=== PATIENT | female | born 1965 | race Caucasian/White ===

== ENCOUNTER 2021-01-10 14:25 | Outpatient (REF) | payer MEDICAID, SELFPAY ==
--- NOTE | ~2021-01-10 | MM_ITS ---
EXAMINATION: MM SCREENING DIGITAL BREAST TOMOSYNTHESIS, BILATERAL CLINICAL INFORMATION: Screening. Asymptomatic. The lifetime risk of breast cancer based on the Tyrer-Cuzick Model is 7%. COMPARISON: Mammography: 01/12/2019, 12/29/2017, 06/06/2016 TECHNIQUE: Digital breast tomosynthesis is performed in both the craniocaudal and mediolateral oblique views along with computer-aided detection (CAD). Synthesized 2D images are generated from the tomosynthesis. Additional bilateral CC and bilateral MLO views are provided. FINDINGS: The breasts are almost entirely fatty (ACR BI-RADS breast composition Category a). Background stromal markings are stable. There are no significant masses, abnormal calcifications, or other abnormalities. No developing density. Skin contours are smooth. No significant changes. MM/MM tomosynthesis screening BI IMPRESSION: No mammographic evidence of malignancy. ASSESSMENT: BI-RADS 1: Negative RECOMMENDATION: Routine annual mammography screening. This patient's information was entered into a reminder system with a target due date for their next mammogram.
== END 2021-01-10 14:26 | disposition home or self-care (01) ==
LOC: HO.MAMMO 14:25
PROVIDERS: PCP Family Medicine; Visit Provider Family Medicine
DX: Z12.31 Encounter for screening mammogram for malignant neoplasm of breast (principal)
CPT/HCPCS: 77063; 77067

== ENCOUNTER 2021-02-16 16:54 | Emergency (ER) | payer MEDICAID, SELFPAY ==
--- NOTE | ~2021-02-16 | XR_ITS ---
EXAMINATION: XR FOOT, RIGHT CLINICAL INFORMATION: Right foot injury. COMPARISON: None TECHNIQUE: AP, lateral, and oblique views of the right foot. FINDINGS: There is a healed fracture of the fifth metatarsal shaft. Bones are osteopenic. No acute fracture or malalignment. Mild/moderate multifocal osteoarthritis is present within the interphalangeal joints and first MTP joint. More mild multifocal osteoarthritis in the midfoot and talocrural joint. Chronic ossific fragments around the talocrural joint correspond to old avulsion injuries. No acute fractures are identified. Moderate sized enthesopathic spur is present at the plantar fascial origin on the calcaneus. XR/XR foot RT min 3V IMPRESSION: No acute fracture or malalignment at the right foot. Mild to moderate multifocal osteoarthritis.
[2021-02-16 16:57] VITALS: BP 157/75; PULSE 84; RESP 18; TEMP 36.9; O2SAT 95; BMI 44.9
--- NOTE | 2021-02-16 18:35 | ED.WOUNDLAC ---
HPI - Wound/Laceration General Chief Complaint: Wound/Laceration Stated Complaint: foot lac Time Seen by Provider: 02/16/21 18:28 History of Present Illness HPI narrative: Patient complains of cut to the right 4th toe when she tripped on a piece of metal on the floor, no numbness no weakness no tingling, no other injury, no difficulty walking Related Data Allergies Allergy/AdvReac Type Severity Reaction Status Date / Time morphine AdvReac Intermediate vomiting Verified 02/16/21 16:56 Review of Systems Review of Systems: Positive for right 4th toe laceration Negatives are no dizziness no weakness no fainting no headache no head injury no neck pain no back pain no numbness weakness or tingling Yes all other systems are reviewed and are negative PMFSH Past Medical History Source: nursing notes reviewed Medical History (Updated 02/17/21 @ 00:01 by Gabino Rodriguez) Diabetes Obesity Social History Social History Advance Directives: No Advance Directives Information Provided: Yes Patient : No Physical Exam Vital Signs: Vital Signs: Last Vital Signs Temp 98.5 F 02/16/21 16:57 Pulse 84 02/16/21 16:57 Resp 18 02/16/21 16:57 BP 157/75 H 02/16/21 16:57 Pulse Ox 95 02/16/21 16:57 Body Mass Index 44.9 General appearance is no acute distress Head is normocephalic atraumatic Neck supple nontender Respiratory no distress Extremities full range of motion x4 Right 4th toe exam there is a superficial flap laceration 1 cm which is not bleeding, there is full range of motion in the toe there is no tenderness noted Course Course Course Narrative: 1.5 cm flap laceration to the right 4th toe is cleansed and irrigated with normal saline and closed with Steri-Strips X-ray was negative Patient ambulates easily, was given a tetanus shot and was discharged Discharge Plan Discharge Clinical Impression: Laceration Patient Disposition: Home, Self-Care Additional Instructions: Superficial cut was closed with tape You got a tetanus shot Removed tape in for 5 days Return any time for redness swelling any sign of infection Interventions: ED Discharge Assessment Last Done: 02/16/21 18:54 Discharge Date/Time: 02/16/21 18:57
[2021-02-16] MEDS: Diphth,Pertus(ACell),Tet Adult 0.5 ML SYRINGE IM (18:46)
--- NOTE | 2021-02-16 18:51 | PC.NURSE ---
PT LAC TO RIGHT FOOT 2ND TOE CLEANED AND IRRIGATED STERIES APPLIED. NOTED THAT PT HAS MULTIPLE SCABBES AND BUISES TO BILATERAL ARM AND LEG PT STATES THAT NORMAL FOR HER.
== END 2021-02-16 18:57 | disposition home or self-care (01) ==
PROVIDERS: Emergency Provider Emergency Medicine Emergency Medical Services; PCP Family Medicine
DX: S91.114A Laceration without foreign body of right lesser toe(s) without damage to nail, initial encounter (principal); W26.8XXA Contact with other sharp object(s), not elsewhere classified, initial encounter; Y93.9 Activity, unspecified; Y92.9 Unspecified place or not applicable; Y99.9 Unspecified external cause status
CPT/HCPCS: 73630; 90471; 90715; 99283; 99284

== ENCOUNTER 2021-08-22 17:07 | Emergency (ER) | payer MEDICAID, SELFPAY ==
--- NOTE | ~2021-08-22 | CT_ITS ---
EXAMINATION: CT HEAD WITHOUT CONTRAST CLINICAL INFORMATION: Worse headache of life. COMPARISON: Head CT dated 03/18/2019. TECHNIQUE: Contiguous axial imaging was performed from the skull base to vertex without intravenous administration of contrast. This CT examination was performed using dose optimization techniques as appropriate, variously including the following: *Automated exposure control *Adjustment of mA and/or kV according to patient size (this includes techniques or standardized protocols for targeted exams where dose is matched to indication/reason for exam; i.e. extremities or head) *Use of iterative reconstruction technique DLP: 680 mGy-cm FINDINGS: There is no evidence of acute intracranial hemorrhage or territorial infarction. No abnormal mass effect or midline shift is seen. Chapman to white matter differentiation is well preserved. No extra-axial fluid collections are identified. The ventricles are normal in size. There is no abnormal attenuation within the brain parenchyma. The osseous structures and soft tissues are normal. The mastoid air cells and visualized portions of the paranasal sinuses are well aerated. CT/CT head/brain wo con IMPRESSION: No acute intracranial pathology.
[2021-08-22 17:16] VITALS: BP 150/63; PULSE 73; RESP 22; TEMP 36.7; O2SAT 98; BMI 45.1
[2021-08-22 17:53] LABS: COVID-19 Test Negative (Negative); IDNOW Serial# 55D5AD1C
[2021-08-22 18:22] VITALS: BP 131/54; PULSE 74; RESP 18; TEMP 36.6; O2SAT 98
[2021-08-22] MEDS: Ketorolac Tromethamine 30 MG/ML VIAL 15 MG IM (18:25)
[2021-08-22] MEDS: Acetaminophen 325 MG TABLET 975 MG PO (18:25)
--- NOTE | 2021-08-22 18:40 | ED_ITS ---
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 Patient is correlating this headache with receiving the COVID-19 booster on Thursday. She states that the pain at the right hoahaoism and her year occurred simultaneously. Otherwise, she denies any other symptoms such as visual or speech changes and denies any unilateral numbness/tingling/weakness. She does report that the pain in her head is ?the worst in her life?. She states she was able to take [id number] Tylenol and ibuprofen with some reduction in the pain but then it simply recurs. Related Data Previous Rx's Medication Instructions Recorded amoxicillin 875 mg-potassium 1 tab PO Q12H 10 Days #20 tab 08/22/21 clavulanate 125 mg tablet (Augmentin) Allergies Allergy/AdvReac Type Severity Reaction Status Date / Time morphine AdvReac Intermediate vomiting Verified 02/16/21 16:56 Review of Systems Verdana 4l Review of Systems: Verdana 4d Pertinent positives and Verdana 4d negatives as stated in HPI 10 point review of systems is otherwise negative. Verdana 4d PMFSH Past Medical History Source: nursing notes reviewed Medical History Diabetes Obesity Social History Social History Alcohol intake: never Patient Tobacco Use Status: Never used Tobacco Use of substances other than those prescribed or required for medical reasons: No Advance Directives: No Advance Directives Information Provided: Yes Physical Exam Verdana 4l Vital Signs: Verdana 4d Verdana 4d Vital Signs: Verdana 4d Verdana 4Bd Last Vital Signs Verdana 4d Bulb Weeder New 4d Bulb Weeder New 4d Temp 98.2 F 08/22/21 19:05 Bulb Weeder New 4d Pulse 67 08/22/21 19:05 Bulb Weeder New 4d Resp 18 08/22/21 19:05 BP 122/44 L 08/22/21 19:05 Pulse Ox 97 08/22/21 19:05 BMI result Body Mass Index 45.1 VITAL SIGNS: Reviewed. GENERAL: Well developed, well nourished, in no acute distress. HEAD: Normocephalic/atraumatic, there is no pain when right mastoid is palpated/percussed EYES: PERRLA, EOMI EARS: Ext canals without abnormality, left TMs non-bulging and non-erythematous but right TM is opaque/and there is tragus pain NOSE: Nares patent bilateral OROPHARYNX: no oral lesions noted, posterior pharynx clear and non-erythematous without noted tonsillar enlargement/erythema/exudates, obvious poor dentition, no trismus NECK: Supple, no adenopathy LUNGS: Normal breath sounds. No adventitious sounds or accessory muscle use. SpO2<98> CARDIOVASCULAR: Regular rate and rhythm without noted murmurs, no JVD or lower extremity edema. ABDOMEN: Soft, non-tender, non-distended with bowel sounds. MUSCULOSKELETAL: No tenderness, deformities, or effusions noted on gross inspection. EXTREMITIES: No cyanosis, clubbing or edema. SKIN: Inspection of the skin reveals no rashes NEUROLOGIC: Alert and oriented x 4. Strength and sensation to light touch were grossly intact x 4, no facial asymmetry Course Course Course Narrative: 55-year-old female with history and clinical presentation suggestive of AOM but will rule out arteritis and low clinical suspicion for dental or pharyngeal abscess or mastoiditis. No evidence to suggest acute angle glaucoma. Patient provided with combination analgesics. On review of all investigations there are no acute mildly elevated ESR is likely due to recent COVID booster vaccination and/or ear infection as the level is inconsistent with arteritis. Patient to receive antibiotics here and then discharge on remaining course. MDM - Headache Lab Data Result diagrams: 08/22/21 18:42 08/22/21 18:42 Labs: Lab Results 08/22/21 08/22/21 08/22/21 Range/Units 17:25 18:42 18:42 WBC 6.9 (4.8-10.8) X10*3/uL RBC 4.94 (4.20-5.50) X10*6/uL Hgb 15.0 (12.0-16.0) g/dl Hct 45.7 (37.0-47.0) % MCV 92.5 (80.0-98.0) fL MCH 30.4 (27.0-33.0) pg MCHC 32.8 (31.0-35.0) g/dl RDW 11.9 (11.0-16.0) % Plt Count 283 (160-400) X10*3/uL MPV 9.8 (9.4-12.3) fL Immature Gran % (Auto) 0.3 (0.0-0.4) % Neut % (Auto) 44.9 L (45-73) % Lymph % (Auto) 39.6 (20-40) % [place] % (Auto) 10.2 (2-11) % Eos % (Auto) 4.1 H (0-4) % Baso % (Auto) 0.9 (0-2) % Lymph # (Auto) 2.7 (1.2-4.9) X10*3/uL [place] # (Auto) 0.7 (0.1-1.2) X10*3/uL Eos # (Auto) 0.3 (0.0-0.4) X10*3/uL Baso # (Auto) 0.1 (0.0-0.2) X10*3/uL Abs Immat Gran (auto) 0.02 (0.00-0.03) X10*3/uL Absolute Neuts (auto) 3.1 (2.0-8.3) x10*3/uL Absolute Nucleated RBC 0.000 (0.0-0.012) X10*3/uL Nucleated RBC % (auto) 0.0 (0.0-0.2) /100WBC ESR (0-20) MM/HR Sodium 143 (135-145) mmol/L Potassium 4.1 (3.3-5.1) mmol/L Chloride 108 (96-108) mmol/L Carbon Dioxide 26 (22-29) mmol/L Anion Gap 13 (12-20) BUN 9 (9-16) mg/dL Creatinine 0.87 (0.5-1.4) mg/dL Estim Creat Clear Calc 79.8 Estimated GFR > 60 POC Glucose (60-115) mg/dL Random Glucose 118 H (60-115) mg/dL Calcium 9.9 (8.4-10.2) mg/dL Total Bilirubin 0.3 (0.0-1.0) mg/dL AST 25 (5-31) U/L ALT 32 H (0-31) U/L Alkaline Phosphatase 76 (39-117) U/L Total Protein 7.5 (6.5-8.0) g/dL Albumin 3.9 (3.5-5.0) g/dL COVID-19 (BOB) Negative (Negative) COVID-19 Clin Com See Note 08/22/21 08/22/21 Range/Units 18:42 18:57 WBC (4.8-10.8) X10*3/uL RBC (4.20-5.50) X10*6/uL Hgb (12.0-16.0) g/dl Hct (37.0-47.0) % MCV (80.0-98.0) fL MCH (27.0-33.0) pg MCHC (31.0-35.0) g/dl RDW (11.0-16.0) % Plt Count (160-400) X10*3/uL MPV (9.4-12.3) fL Immature Gran % (Auto) (0.0-0.4) % Neut % (Auto) (45-73) % Lymph % (Auto) (20-40) % [place] % (Auto) (2-11) % Eos % (Auto) (0-4) % Baso % (Auto) (0-2) % Lymph # (Auto) (1.2-4.9) X10*3/uL [place] # (Auto) (0.1-1.2) X10*3/uL Eos # (Auto) (0.0-0.4) X10*3/uL Baso # (Auto) (0.0-0.2) X10*3/uL Abs Immat Gran (auto) (0.00-0.03) X10*3/uL Absolute Neuts (auto) (2.0-8.3) x10*3/uL Absolute Nucleated RBC (0.0-0.012) X10*3/uL Nucleated RBC % (auto) (0.0-0.2) /100WBC ESR 21 H (0-20) MM/HR Sodium (135-145) mmol/L Potassium (3.3-5.1) mmol/L Chloride (96-108) mmol/L Carbon Dioxide (22-29) mmol/L Anion Gap (12-20) BUN (9-16) mg/dL Creatinine (0.5-1.4) mg/dL Estim Creat Clear Calc Estimated GFR POC Glucose 101 (60-115) mg/dL Random Glucose (60-115) mg/dL Calcium (8.4-10.2) mg/dL Total Bilirubin (0.0-1.0) mg/dL AST (5-31) U/L ALT (0-31) U/L Alkaline Phosphatase (39-117) U/L Total Protein (6.5-8.0) g/dL Albumin (3.5-5.0) g/dL COVID-19 (BOB) (Negative) COVID-19 Clin Com Discharge Plan Discharge Clinical Impression: Acute otitis media Patient Disposition: Home, Self-Care Instructions: Ear Infection (ED) Additional Instructions: 1. Reanudar todos los medicamentos caseros seg?n lo prescrito. 2. Complete todo el ciclo de antibi?ticos. 3. Por Tylenol 1000 mg, por v?a oral, cada 6 horas seg?n sea necesario para controlar el dolor. No exceda los 4000 mg dentro de las 24 horas. 4. Ibuprofeno 400 mg, por v?a oral con leche o comida, cada 6 horas seg?n sea necesario para controlar el dolor. Seguimiento con joseph proveedor de atenci?n primaria en los pr?ximos 1-2 d?as. Regrese a la soraya de emergencias si los s?ntomas empeoran. Prescriptions: New amoxicillin-pot clavulanate [Augmentin] 875-125 mg tablet 1 tab PO Q12H 10 Days Qty: 20 0RF Referrals: [facility] [Outside] - 2 days Print Language: [place]an
[2021-08-22 18:46] LABS: MANUAL DIFF FLAG NO
[2021-08-22 18:47] LABS: Basophils Absolute Auto 0.1 X10*3/uL (0.0-0.2); Basophils Percent Auto 0.9 % (0-2); Eosinophils Absolute Auto 0.3 X10*3/uL (0.0-0.4); Eosinophils Percent Auto 4.1 % (0-4); Hematocrit 45.7 % (37.0-47.0); Imm Gran Abs Auto 0.02 X10*3/uL (0.00-0.03); Imm Gran Pct Auto 0.3 % (0.0-0.4); Lymphocytes Absolute Auto 2.7 X10*3/uL (1.2-4.9); Lymphocytes Percent Auto 39.6 % (20-40); Mean Corpuscular HGB Conc 32.8 g/dl (31.0-35.0); Mean Corpuscular Hemoglobin 30.4 pg (27.0-33.0); Mean Corpuscular Volume 92.5 fL (80.0-98.0); Mean Platelet Volume 9.8 fL (9.4-12.3); Monocytes Absolute Auto 0.7 X10*3/uL (0.1-1.2); Monocytes Percent Auto 10.2 % (2-11); Neutrophils Absolute Auto 3.1 x10*3/uL (2.0-8.3); Neutrophils Percent Auto 44.9 % (45-73); Platelet Count 283 X10*3/uL (160-400); Red Blood Count 4.94 X10*6/uL (4.20-5.50); Red Cell Distribution Width 11.9 % (11.0-16.0); White Blood Count 6.9 X10*3/uL (4.8-10.8)
[2021-08-22 19:01] LABS: Glucose, Whole Blood 101 mg/dL (60-115)
[2021-08-22 19:05] VITALS: BP 122/44; PULSE 67; RESP 18; TEMP 36.8; O2SAT 97
[2021-08-22 19:05] LABS: Alanine Aminotransferase 32 U/L (0-31); Albumin Level 3.9 g/dL (3.5-5.0); Alkaline Phosphatase 76 U/L (39-117); Anion Gap 13 (12-20); Aspartate Amino Transferase 25 U/L (5-31); Bilirubin Total 0.3 mg/dL (0.0-1.0); Blood Urea Nitrogen 9 mg/dL (9-16); Calcium 9.9 mg/dL (8.4-10.2); Carbon Dioxide 26 mmol/L (22-29); Chloride 108 mmol/L (96-108); Creatinine Clr Calc Pharmacy 79.8; Estimated Glomerular Filt Rate > 60; Glucose Random 118 mg/dL (60-115); Potassium 4.1 mmol/L (3.3-5.1); Sodium 143 mmol/L (135-145); Total Protein 7.5 g/dL (6.5-8.0)
[2021-08-22 19:21] LABS: Erythrocyte Sedimentation Rate 21 MM/HR (0-20)
[2021-08-22] MEDS: Amoxicillin/Potassium Clav 875 MG TABLET PO (20:05)
== END 2021-08-22 20:16 | disposition home or self-care (01) ==
PROVIDERS: Emergency Provider Student in an Organized Health Care Education/Training Program
DX: H66.91 Otitis media, unspecified, right ear (principal); Z20.822 Contact with and (suspected) exposure to COVID-19; R51.9 Headache, unspecified; I10 Essential (primary) hypertension; E11.9 Type 2 diabetes mellitus without complications
CPT/HCPCS: 36415; 70450; 80053; 82947; 85025; 85652; 87635; 96372; 99284; J1885

== ENCOUNTER 2021-08-29 14:53 | Outpatient (REF) | payer MEDICAID, SELFPAY ==
[2021-08-29 15:39] LABS: Anion Gap 13 (12-20); Blood Urea Nitrogen 10 mg/dL (9-16); Calcium 10.4 mg/dL (8.4-10.2); Carbon Dioxide 28 mmol/L (22-29); Chloride 105 mmol/L (96-108); Estimated Glomerular Filt Rate > 60; Glucose Random 108 mg/dL (60-115); Potassium 4.5 mmol/L (3.3-5.1); Sodium 141 mmol/L (135-145)
== END 2021-08-29 14:54 | disposition home or self-care (01) ==
LOC: HO.LAB 14:53
PROVIDERS: PCP Family Medicine; Visit Provider Family Medicine
DX: H66.90 Otitis media, unspecified, unspecified ear (principal)
CPT/HCPCS: 36415; 80048

== ENCOUNTER 2021-08-30 15:26 | Outpatient (REF) | payer MEDICAID, SELFPAY ==
--- NOTE | ~2021-08-30 | CT_ITS ---
EXAMINATION: CT ORBIT WITH CONTRAST CLINICAL INFORMATION: Infection. Otitis media. Headache. COMPARISON: CT head from 08/22/2021. TECHNIQUE: Multidetector helical imaging of the orbits was obtained following the administration of 85 mL Omnipaque 350 intravenous contrast. DLP: 240 mGy-cm FINDINGS: Normal appearance of the osseous orbits. No significant preseptal or retrobulbar edema. Normal appearance of the globes. Normal symmetric appearance of the extraocular musculature. No abnormalities of the intraconal or extraconal adipose tissue. Normal appearance of the optic nerve sheaths. Normal appearance of the lacrimal glands. No orbital fluid collections. No abnormalities of the orbital apices. The premaxillary, retromaxillary, pterygopalatine fossa, temporal fossa, and parapharyngeal adipose tissue is maintained. No demonstrated abnormalities of the cavernous sinuses. No demonstrated vascular abnormalities. Normal appearance of the zygomatic arches. No nasal bone fracture. Mild mucosal thickening of the paranasal sinuses. Mild leftward nasal septal deviation with spurring. The mandibular condyles remain well-seated in their respective temporal articular grooves. Mild degenerative arthropathy of the left greater than right temporomandibular joints. Mild mucosal thickening of the left middle ear cavity and small volume left mastoid effusion. The right-sided middle ear cavity and mastoid air cells are clear. No periauricular soft tissue edema/collection. No demonstrated abnormalities of the visualized intracranial structures. Congenital nonfusion of the posterior arch of C1. CT/CT orbit BI w con IMPRESSION: 1. Normal CT appearance of the orbits. 2. Mild mucosal thickening of the left middle ear cavity and small volume left sided mastoid effusion. These findings may represent age-indeterminate sequela of otitis media.
[2021-08-30] MEDS: iohexoL 350 MG/ML 100 ML INFUS..BTL IV (16:12)
== END 2021-08-30 15:27 | disposition home or self-care (01) ==
LOC: HO.CT 15:26
PROVIDERS: PCP Family Medicine; Visit Provider Nurse Practitioner Family
DX: H66.90 Otitis media, unspecified, unspecified ear (principal)
CPT/HCPCS: 70481; Q9967

== ENCOUNTER 2021-09-04 14:37 | Outpatient (REF) | payer MEDICAID, SELFPAY | END 2021-09-04 14:38 | disposition home or self-care (01) | LOC: HO.MRI 14:37 | PROVIDERS: Visit Provider Nurse Practitioner Family | DX: Z13.89 Encounter for screening for other disorder (principal) ==

== ENCOUNTER → 2022-01-16 12:55 | Outpatient (BNVA) | payer MEDICAID, SELFPAY | PROVIDERS: PCP Family Medicine; Visit Provider Surgery | DX: M25.561 Pain in right knee (principal); M54.50 Low back pain, unspecified | CPT/HCPCS: 99202 ==

== ENCOUNTER 2022-01-23 07:01 | Outpatient (REF) | payer MEDICAID, SELFPAY ==
--- NOTE | ~2022-01-23 | XR_ITS ---
EXAMINATION: XR LUMBAR SPINE XR KNEE, RIGHT CLINICAL INFORMATION: Low back pain and right knee pain COMPARISON: None TECHNIQUE: 3 views lumbar spine. 2 views right knee. FINDINGS: LUMBAR SPINE: There is normal lumbar lordosis. There is minimal levoscoliosis lower lumbar spine. The vertebral heights and alignment are normal. There is loss of L4-L5 disc height. No visible acute fracture, dislocation or lytic process seen. The paravertebral soft tissues are normal. SI joints are normal. RIGHT KNEE: AP and lateral views of right knee reveals loss of medial and patellofemoral compartment joint space with periarticular spurring. There is mild suprapatellar joint effusion. There are no loose bodies or bony erosive changes. The soft tissues are normal. XR/XR knee RT 2V IMPRESSION: Minimal levoscoliosis lower lumbar spine. No visible acute fracture or dislocation seen. There are L4-L5 degenerative disc changes. Degenerative arthritic changes medial and patellofemoral compartment with moderate periarticular spurring. There is a small suprapatellar joint effusion.
--- NOTE | ~2022-01-23 | XR_ITS ---
EXAMINATION: XR LUMBAR SPINE XR KNEE, RIGHT CLINICAL INFORMATION: Low back pain and right knee pain COMPARISON: None TECHNIQUE: 3 views lumbar spine. 2 views right knee. FINDINGS: LUMBAR SPINE: There is normal lumbar lordosis. There is minimal levoscoliosis lower lumbar spine. The vertebral heights and alignment are normal. There is loss of L4-L5 disc height. No visible acute fracture, dislocation or lytic process seen. The paravertebral soft tissues are normal. SI joints are normal. RIGHT KNEE: AP and lateral views of right knee reveals loss of medial and patellofemoral compartment joint space with periarticular spurring. There is mild suprapatellar joint effusion. There are no loose bodies or bony erosive changes. The soft tissues are normal. XR/XR lumbar spine 2-3V IMPRESSION: Minimal levoscoliosis lower lumbar spine. No visible acute fracture or dislocation seen. There are L4-L5 degenerative disc changes. Degenerative arthritic changes medial and patellofemoral compartment with moderate periarticular spurring. There is a small suprapatellar joint effusion.
== END 2022-01-23 07:02 | disposition home or self-care (01) ==
LOC: HO.XRAY 07:01
PROVIDERS: PCP Family Medicine; Visit Provider Family Medicine
DX: M25.561 Pain in right knee (principal); M54.50 Low back pain, unspecified
CPT/HCPCS: 72100; 73560

== ENCOUNTER 2022-01-24 14:46 | Outpatient (REF) | payer MEDICAID, SELFPAY ==
--- NOTE | ~2022-01-24 | US_ITS ---
EXAMINATION: POSTERIOR RIGHT THIGH CLINICAL INFORMATION: Complains of lump posterior right COMPARISON: None TECHNIQUE: Ultrasound soft tissues posterior right thigh FINDINGS: Targeted ultrasound images were obtained of the area of concern as indicated by the patient in the posterior right thigh and demonstrated no discrete cystic or solid mass. Radiologist was not in attendance. Images were later provided for interpretation. US/US extremity nonvascular IMPRESSION: No discrete cystic or solid mass identified to correlate with the area of concern indicated by the patient in the posterior right thigh. Decisions regarding further imaging, treatment or biopsy should be based on the clinical exam, as not all abnormalities are detectable on ultrasound studies.
== END 2022-01-24 14:47 | disposition home or self-care (01) ==
LOC: HO.US 14:46
PROVIDERS: PCP Family Medicine; Visit Provider Family Medicine
DX: R22.9 Localized swelling, mass and lump, unspecified (principal)
CPT/HCPCS: 76882

== ENCOUNTER 2022-02-04 15:26 | Outpatient (REF) | payer MEDICAID, SELFPAY ==
--- NOTE | ~2022-02-04 | MM_ITS ---
EXAMINATION: MM SCREENING DIGITAL BREAST TOMOSYNTHESIS, BILATERAL CLINICAL INFORMATION: Screening. Asymptomatic. The lifetime risk of breast cancer based on the Tyrer-Cuzick Model is 6%. COMPARISON: Mammography: January 10, 2021 and studies dating back to March 09, 2014 TECHNIQUE: Digital breast tomosynthesis is performed in both the craniocaudal and mediolateral oblique views along with computer-aided detection (CAD). Synthesized 2D images are generated from the tomosynthesis. FINDINGS: The breasts are almost entirely fatty (ACR BI-RADS breast composition Category a). There are no significant masses, abnormal calcifications, or other abnormalities. MM/MM tomosynthesis screening BI IMPRESSION: There are no significant changes from prior study. ASSESSMENT: BI-RADS 1: Negative RECOMMENDATION: Routine annual mammography screening. This patient's information was entered into a reminder system with a target due date for their next mammogram.
== END 2022-02-04 15:27 | disposition home or self-care (01) ==
LOC: HO.MAMMO 15:26
PROVIDERS: Visit Provider Family Medicine
DX: Z12.31 Encounter for screening mammogram for malignant neoplasm of breast (principal)
CPT/HCPCS: 77063; 77067

== ENCOUNTER 2022-02-26 07:27 | Outpatient (REF) | payer MEDICAID, SELFPAY | END 2022-02-26 07:28 | disposition home or self-care (01) | LOC: HO.HOSX 07:27 | PROVIDERS: Visit Provider Physician Assistant | DX: Z13.89 Encounter for screening for other disorder (principal) ==

== ENCOUNTER 2022-03-30 21:48 | Emergency (ER) | payer MEDICAID, SELFPAY ==
[2022-03-30] MEDS: Midazolam HCl/PF 2 MG/2 ML VIAL IM (21:58)
[2022-03-30] MEDS: Haloperidol Lactate 5 MG/ML VIAL IM (21:58)
--- NOTE | 2022-03-30 22:02 | PC.NURSE ---
pt very aggitated, yelling out screeming. pt medicated with versed and haldol. pt is now in 4 point restraints. pt is s12.
[2022-03-30 22:07] VITALS: BP 110/40; PULSE 101; RESP 18; TEMP 36.8; O2SAT 95
--- NOTE | 2022-03-30 22:11 | PC.NURSE ---
2mg Versed and 5mg Haldol administered to pt., as pt. arrived to ED screaming at the top of her lungs, thrashing, completely unable to be redirected and uncooperative. Meds. ordered per JOE Acuña. Meds. administered to pt., then pt. transferred to room. Physical restraints applied, pt. on cardiac and SPO2 monitor s/p medication injections, RICHARD Rodas starting restraint sheet.
[2022-03-30 22:15] VITALS: BP 110/40; PULSE 90; RESP 18; O2SAT 96
[2022-03-30 22:27] VITALS: BP 110/59; PULSE 90; RESP 20; O2SAT 94
[2022-03-30 22:46] VITALS: BP 117/57; PULSE 88; RESP 23; O2SAT 94
--- NOTE | 2022-03-30 23:32 | ED_ITS ---
HPI - Alcohol General Chief Complaint: ETOH/Substance Use <JOE Ballard - Last Filed: 03/31/22 02:20> Stated Complaint: ETOH <JOE Ballard - Last Filed: 03/31/22 02:20> Time Seen by Provider: 03/30/22 21:51 <JOE Ballard Last Filed: 03/31/22 02:20> Source: family, EMS and police <JOE Ballard - Last Filed: 03/31/22 02:20> Mode of arrival: EMS <JOE Ballard - Last Filed: 03/31/22 02:20> Limitations: other (alcohol intoxication / ams ) <JOE Ballard - Last Filed: 03/31/22 02:20> History of Present Illness HPI narrative: 56-year-old female with a PMHx of DM, presenting with EMS and PD for ETOH intoxication, SI, and agitation. Per the patient's son, the patient's recently and since then the patient has been drinking alcohol regularly and been acting somewhat erratically. The patient's son reports that she has a history of alcohol abuse but that it has been worse since her husba nd's . He states that he believes the patient drank about 6 bottles of alcohol today. Approximately, an hour prior to arrival the patient became agitated and was yelling. No reported falls or trauma. PD was called and the patient made SI statement to them, arrives on a section 12 for psych evaluation. Patient unable to provide any additional information upon presentation due to extreme agitation requiring Haldol, Versed, and physical restraints. <JOE Ballard - Last Filed: 03/31/22 02:20> Related Data Home Medications: Previous Rx's Medication Instructions Recorded amoxicillin 875 mg-potassium 1 tab PO Q12H 10 days #20 tabs 08/22/21 clavulanate 125 mg tablet (Augmentin) <JOE Ballard Last Filed: 03/31/22 02:20> Allergies/Adverse Reactions: Allergies Allergy/AdvReac Type Severity Reaction Status Date / Time morphine AdvReac Intermediate vomiting Verified 01/16/22 13:20 <JOE Ballard - Last Filed: 03/31/22 02:20> Review of Systems Review of Systems: Yes Unobtainable due to mental status <JOE Ballard - Last Filed: 03/31/22 02:20> [facility] Past Medical History Attestation statement: The following information was validated with the patient. <JOE Ballard - Last Filed: 03/31/22 02:20> Source: old records reviewed, obtained from family and nursing notes reviewed <JOE Ballard - Last Filed: 03/31/22 02:20> Medical History: Medical History Diabetes High cholesterol HTN (hypertension), benign Pterygium <JOE Ballard - Last Filed: 03/31/22 02:20> Surgical History: Surgical History H/O colonoscopy History of section <JOE Ballard - Last Filed: 03/31/22 02:20> Social History Social History: Social History Alcohol intake: never Patient Tobacco Use Status: Never used Tobacco Advance Directives: No Advance Directives Information Provided: No <JOE Ballard - Last Filed: 03/31/22 02:20> Physical Exam ED Vital Signs: Vital Signs - 24 hr 03/30/22 22:07 03/30/22 22:15 03/30/22 22:27 Temperature 98.2 F Pulse Rate 101 H 90 90 Respiratory Rate 18 18 20 Blood Pressure 110/40 L 110/40 L 110/59 L Pulse Oximetry 95 96 94 Oxygen Delivery Method Room Air Room Air Room Air 03/30/22 22:46 03/30/22 23:48 Temperature Pulse Rate 88 73 Respiratory Rate 23 H 15 Blood Pressure 117/57 L Pulse Oximetry 94 Oxygen Delivery Method Room Air BMI result Body Mass Index 5.1 VSS <JOE Ballard - Last Filed: 03/31/22 02:20> Vital Signs - 24 hr 03/30/22 22:07 03/30/22 22:15 03/30/22 22:27 Temperature 98.2 F Pulse Rate 101 H 90 90 Respiratory Rate 18 18 20 Blood Pressure 110/40 L 110/40 L 110/59 L Pulse Oximetry 95 96 94 Oxygen Delivery Method Room Air Room Air Room Air 03/30/22 22:46 03/30/22 23:48 Temperature Pulse Rate 88 73 Respiratory Rate 23 H 15 Blood Pressure 117/57 L Pulse Oximetry 94 Oxygen Delivery Method Room Air BMI result Body Mass Index 5.1 <Chinyere Ramirez MD - Last Filed: 03/31/22 03:43> Appearance: Agitated, repeatedly screaming. Smells of alcohol. Unkempt appearing. Head: Normocephalic, atraumatic, no step-offs or deformities Eyes: Pupils equal, round and reactive to light.? Neck: Normal inspection.? Neck supple.? CVS: Normal heart rate and rhythm.? Pulses normal.? Respiratory: No respiratory distress.? Breath sounds normal.? Abdomen: Soft. Normal BS. Non-distended. Nontender. Skin: Skin warm and dry.? Normal skin color.? Normal skin turgor.? Extremities: No lower extremity edema.? No calf ttp. 5/5 strength to bilateral upper and lower extremities, patient placed in 4 point-restraints upon arrival. Neuro: Unable to evaluate secondary to patient's mental status. Awake, moving all extremities, no evidence of trauma. <JOE Ballard - Last Filed: 03/31/22 02:20> Course Reevaluation(s) Reevaluation #1: Patient's vitals remained stable. Laboratory studies, urine, BARROW, BHN in evaluation pending at this time. Sign-out given to Dr. Ramirez. <JOE Ballard - Last Filed: 03/31/22 02:20> Time: 02:19 <JOE Ballard - Last Filed: 03/31/22 02:20> Reevaluation #2: At this time, patient is clinically sober. Patient is awake, alert and oriented x4. Ambulatory without any assistance. Patient states that she does not remember making any SI statements. Patient states that she is not suicidal or homicidal. Patient she is grieving the of her , but she is adamant that she is not suicidal or homicidal. <Chinyere Ramirez MD - Last Filed: 03/31/22 03:43> Time: 03:41 <Chinyere Ramirez MD - Last Filed: 03/31/22 03:43> MDM - Alcohol MDM Narrative Medical decision making narrative: 22:25 56-year-old female with a PMHx of DM presenting with acute agitation and alcohol intoxication, making SI statements to police. Arrives on Section 12. Requiring Versed, Haldol, and physical restraints upon arrival. Of note, patient's recently PE remarkable for acute agitation, patient repeatedly screaming and attempting to strike EMS and PD. No signs of trauma. Plan to obtain routine labs, ethanol level, BARROW, Mg, UA. Will clear medically and consult N for psychiatry evaluation. Suspect alcohol intoxication/grief reaction, less likely electrolyte abnormality or other acute process causing psychosis. <JOE Ballard - Last Filed: 03/31/22 02:20> Medical Records Attestation: I reviewed the patient's medical records. <JOE Ballard - Last Filed: 03/31/22 02:20> Lab Data Attestation: I reviewed the patient's lab results. <JOE Ballard - Last Filed: 03/31/22 02:20> Result diagrams: : 03/31/22 02:33 03/31/22 02:30 <JOE Ballard - Last Filed: 03/31/22 02:20> Labs: Lab Results 03/31/22 03/31/22 03/31/22 Range/Units 00:24 00:24 02:30 WBC (4.8-10.8) X10*3/uL RBC (4.20-5.50) X10*6/uL Hgb (12.0-16.0) g/dl Hct (37.0-47.0) % MCV (80.0-98.0) fL MCH (27.0-33.0) pg MCHC (31.0-35.0) g/dl RDW (11.0-16.0) % Plt Count (160-400) X10*3/uL MPV (9.4-12.3) fL Immature Gran % (Auto) (0.0-0.4) % Neut % (Auto) (45-73) % Lymph % (Auto) (20-40) % [facility] % (Auto) (2-11) % Eos % (Auto) (0-4) % Baso % (Auto) (0-2) % Lymph # (Auto) (1.2-4.9) X10*3/uL [facility] # (Auto) (0.1-1.2) X10*3/uL Eos # (Auto) (0.0-0.4) X10*3/uL Baso # (Auto) (0.0-0.2) X10*3/uL Abs Immat Gran (auto) (0.00-0.03) X10*3/uL Absolute Neuts (auto) (2.0-8.3) x10*3/uL Absolute Nucleated RBC (0.0-0.012) X10*3/uL Nucleated RBC % (auto) (0.0-0.2) /100WBC Sodium 141 (135-145) mmol/L Potassium 4.3 (3.3-5.1) mmol/L Chloride 109 H (96-108) mmol/L Carbon Dioxide 18 L (22-29) mmol/L Anion Gap 18 (12-20) BUN 8 L (9-16) mg/dL Creatinine 0.66 (0.5-1.4) mg/dL Estim Creat Clear Calc 19.0 Estimated GFR > 60 Random Glucose 116 H (60-115) mg/dL Calcium 8.8 D (8.4-10.2) mg/dL Magnesium 1.9 (1.6-2.6) mg/dL Total Bilirubin 0.2 (0.0-1.0) mg/dL AST 44 H D (5-31) U/L ALT 62 H (0-31) U/L Alkaline Phosphatase 75 (39-117) U/L Total Protein 7.2 (6.5-8.0) g/dL Albumin 3.8 (3.5-5.0) g/dL Urine Color Yellow Urine Appearance Clear Urine pH 5.5 (5.0-9.0) Ur Specific [place] <= 1.005 (1.005-1.025) Urine Protein Negative (Neg-Trace) mg/dL Urine Glucose (UA) Negative (Negative) mg/dL Urine Ketones Negative (Negative) mg/dL Urine Blood Negative (Negative) Urine Nitrite Negative (Negative) Ur Leukocyte Esterase Negative (Negative) Salicylates < 5.0 L (15-30) mg/dL Urine Opiates Screen Not Detected (Not Detect) Urine Fentanyl Screen Not Detected (Not Detect) Acetaminophen < 1 (<30) mcg/mL Ur Barbiturates Screen Not Detected (Not Detect) Ur Phencyclidine Scrn Not Detected (Not Detect) Ur Amphetamines Screen Not Detected (Not Detect) U Benzodiazepines Scrn POSITIVE H (Not Detect) Urine Cocaine Screen Not Detected (Not Detect) U Marijuana (THC) Screen Not Detected (Not Detect) Ethyl Alcohol 155 mg/dL 03/31/22 Range/Units 02:33 WBC 7.1 (4.8-10.8) X10*3/uL RBC 4.86 (4.20-5.50) X10*6/uL Hgb 14.6 (12.0-16.0) g/dl Hct 44.3 (37.0-47.0) % MCV 91.2 (80.0-98.0) fL MCH 30.0 (27.0-33.0) pg MCHC 33.0 (31.0-35.0) g/dl RDW 12.1 (11.0-16.0) % Plt Count 292 (160-400) X10*3/uL MPV 9.5 (9.4-12.3) fL Immature Gran % (Auto) 0.1 (0.0-0.4) % Neut % (Auto) 43.4 L (45-73) % Lymph % (Auto) 46.6 H (20-40) % [facility] % (Auto) 7.9 (2-11) % Eos % (Auto) 1.4 (0-4) % Baso % (Auto) 0.6 (0-2) % Lymph # (Auto) 3.3 (1.2-4.9) X10*3/uL [facility] [place] # (Auto) 0.6 (0.1-1.2) X10*3/uL Eos # (Auto) 0.1 (0.0-0.4) X10*3/uL Baso # (Auto) 0.0 (0.0-0.2) X10*3/uL Abs Immat Gran (auto) 0.01 (0.00-0.03) X10*3/uL Absolute Neuts (auto) 3.1 (2.0-8.3) x10*3/uL Absolute Nucleated RBC 0.000 (0.0-0.012) X10*3/uL Nucleated RBC % (auto) 0.0 (0.0-0.2) /100WBC Sodium (135-145) mmol/L Potassium (3.3-5.1) mmol/L Chloride (96-108) mmol/L Carbon Dioxide (22-29) mmol/L Anion Gap (12-20) BUN (9-16) mg/dL Creatinine (0.5-1.4) mg/dL Estim Creat Clear Calc Estimated GFR Random Glucose (60-115) mg/dL Calcium (8.4-10.2) mg/dL Magnesium (1.6-2.6) mg/dL Total Bilirubin (0.0-1.0) mg/dL AST (5-31) U/L ALT (0-31) U/L Alkaline Phosphatase (39-117) U/L Total Protein (6.5-8.0) g/dL Albumin (3.5-5.0) g/dL Urine Color Urine Appearance Urine pH (5.0-9.0) Ur Specific [place] (1.005-1.025) Urine Protein (Neg-Trace) mg/dL Urine Glucose (UA) (Negative) mg/dL Urine Ketones (Negative) mg/dL Urine Blood (Negative) Urine Nitrite (Negative) Ur Leukocyte Esterase (Negative) Salicylates (15-30) mg/dL Urine Opiates Screen (Not Detect) Urine Fentanyl Screen (Not Detect) Acetaminophen (<30) mcg/mL Ur Barbiturates Screen (Not Detect) Ur Phencyclidine Scrn (Not Detect) Ur Amphetamines Screen (Not Detect) U Benzodiazepines Scrn (Not Detect) Urine Cocaine Screen (Not Detect) U Marijuana (THC) Screen (Not Detect) Ethyl Alcohol mg/dL <JOE Ballard - Last Filed: 03/31/22 02:20> Lab Results 0903/31/22 03/31/22 Range/Units 00:24 00:24 02:30 WBC (4.8-10.8) X10*3/uL RBC (4.20-5.50) X10*6/uL Hgb (12.0-16.0) g/dl Hct (37.0-47.0) % MCV (80.0-98.0) fL MCH (27.0-33.0) pg MCHC (31.0-35.0) g/dl RDW (11.0-16.0) % Plt Count (160-400) X10*3/uL MPV (9.4-12.3) fL Immature Gran % (Auto) (0.0-0.4) % Neut % (Auto) (45-73) % Lymph % (Auto) (20-40) % [facility] % (Auto) (2-11) % Eos % (Auto) (0-4) % Baso % (Auto) (0-2) % Lymph # (Auto) (1.2-4.9) X10*3/uL [facility] # (Auto) (0.1-1.2) X10*3/uL Eos # (Auto) (0.0-0.4) X10*3/uL Baso # (Auto) (0.0-0.2) X10*3/uL Abs Immat Gran (auto) (0.00-0.03) X10*3/uL Absolute Neuts (auto) (2.0-8.3) x10*3/uL Absolute Nucleated RBC (0.0-0.012) X10*3/uL Nucleated RBC % (auto) (0.0-0.2) /100WBC Sodium 141 (135-145) mmol/L Potassium 4.3 (3.3-5.1) mmol/L Chloride 109 H (96-108) mmol/L Carbon Dioxide 18 L (22-29) mmol/L Anion Gap 18 (12-20) BUN 8 L (9-16) mg/dL Creatinine 0.66 (0.5-1.4) mg/dL Estim Creat Clear Calc 19.0 Estimated GFR > 60 Random Glucose 116 H (60-115) mg/dL Calcium 8.8 D (8.4-10.2) mg/dL Magnesium 1.9 (1.6-2.6) mg/dL Total Bilirubin 0.2 (0.0-1.0) mg/dL AST 44 H D (5-31) U/L ALT 62 H (0-31) U/L Alkaline Phosphatase 75 (39-117) U/L Total Protein 7.2 (6.5-8.0) g/dL Albumin 3.8 (3.5-5.0) g/dL Urine Color Yellow Urine Appearance Clear Urine pH 5.5 (5.0-9.0) Ur Specific [place] <= 1.005 (1.005-1.025) Urine Protein Negative (Neg-Trace) mg/dL Urine Glucose (UA) Negative (Negative) mg/dL Urine Ketones Negative (Negative) mg/dL Urine Blood Negative (Negative) Urine Nitrite Negative (Negative) Ur Leukocyte Esterase Negative (Negative) Salicylates < 5.0 L (15-30) mg/dL Urine Opiates Screen Not Detected (Not Detect) Urine Fentanyl Screen Not Detected (Not Detect) Acetaminophen < 1 (<30) mcg/mL Ur Barbiturates Screen Not Detected (Not Detect) Ur Phencyclidine Scrn Not Detected (Not Detect) Ur Amphetamines Screen Not Detected (Not Detect) U Benzodiazepines Scrn POSITIVE H (Not Detect) Urine Cocaine Screen Not Detected (Not Detect) U Marijuana (THC) Screen Not Detected (Not Detect) Ethyl Alcohol 155 mg/dL 03/31/22 Range/Units 02:33 WBC 7.1 (4.8-10.8) X10*3/uL RBC 4.86 (4.20-5.50) X10*6/uL Hgb 14.6 (12.0-16.0) g/dl Hct 44.3 (37.0-47.0) % MCV 91.2 (80.0-98.0) fL MCH 30.0 (27.0-33.0) pg MCHC 33.0 (31.0-35.0) g/dl RDW 12.1 (11.0-16.0) % Plt Count 292 (160-400) X10*3/uL MPV 9.5 (9.4-12.3) fL Immature Gran % (Auto) 0.1 (0.0-0.4) % Neut % (Auto) 43.4 L (45-73) % Lymph % (Auto) 46.6 H (20-40) % [facility] % (Auto) 7.9 (2-11) % Eos % (Auto) 1.4 (0-4) % Baso % (Auto) 0.6 (0-2) % Lymph # (Auto) 3.3 (1.2-4.9) X10*3/uL [facility] # (Auto) 0.6 (0.1-1.2) X10*3/uL Eos # (Auto) 0.1 (0.0-0.4) X10*3/uL Baso # (Auto) 0.0 (0.0-0.2) X10*3/uL Abs Immat Gran (auto) 0.01 (0.00-0.03) X10*3/uL Absolute Neuts (auto) 3.1 (2.0-8.3) x10*3/uL Absolute Nucleated RBC 0.000 (0.0-0.012) X10*3/uL Nucleated RBC % (auto) 0.0 (0.0-0.2) /100WBC Sodium (135-145) mmol/L Potassium (3.3-5.1) mmol/L Chloride (96-108) mmol/L Carbon Dioxide (22-29) mmol/L Anion Gap (12-20) BUN (9-16) mg/dL Creatinine (0.5-1.4) mg/dL Estim Creat Clear Calc Estimated GFR Random Glucose (60-115) mg/dL Calcium (8.4-10.2) mg/dL Magnesium (1.6-2.6) mg/dL Total Bilirubin (0.0-1.0) mg/dL AST (5-31) U/L ALT (0-31) U/L Alkaline Phosphatase (39-117) U/L Total Protein (6.5-8.0) g/dL Albumin (3.5-5.0) g/dL Urine Color Urine Appearance Urine pH (5.0-9.0) Ur Specific [place] (1.005-1.025) Urine Protein (Neg-Trace) mg/dL Urine Glucose (UA) (Negative) mg/dL Urine Ketones (Negative) mg/dL Urine Blood (Negative) Urine Nitrite (Negative) Ur Leukocyte Esterase (Negative) Salicylates (15-30) mg/dL Urine Opiates Screen (Not Detect) Urine Fentanyl Screen (Not Detect) Acetaminophen (<30) mcg/mL Ur Barbiturates Screen (Not Detect) Ur Phencyclidine Scrn (Not Detect) Ur Amphetamines Screen (Not Detect) U Benzodiazepines Scrn (Not Detect) Urine Cocaine Screen (Not Detect) U Marijuana (THC) Screen (Not Detect) Ethyl Alcohol mg/dL <Chinyere Ramirez MD - Last Filed: 03/31/22 03:43> Critical Care Time Critical Care Time Critical Care Time: No <JOE Ballard - Last Filed: 03/31/22 02:20> Discharge Plan Discharge Clinical Impression: Alcoholic intoxication, Depression <JOE Ballard - Last Filed: 03/31/22 02:20> Patient Disposition: Home, Self-Care <JOE Ballard - Last Filed: 03/31/22 02:20> Instructions: Alcohol Intoxication (ED), Depression (ED) <JOE Ballard - Last Filed: 03/31/22 02:20> Additional Instructions: Please follow-up with your primary care physician tomorrow. If you have any worsening or new symptoms, please return to the emergency room or call 911 <JOE Ballard - Last Filed: 03/31/22 02:20> Prescriptions: No Action amoxicillin-pot clavulanate [Augmentin] 875-125 mg tablet 1 tab PO Q12H 10 Days Qty: 20 0RF <JOE Ballard - Last Filed: 03/31/22 02:20>
[2022-03-30 23:48] VITALS: PULSE 73; RESP 15
[2022-03-31 00:31] LABS: Appearance Urine Clear; Color Urine Yellow; Glucose Urine UA Negative (Negative); Leukocyte Esterase Urine Negative (Negative); Nitrite Urine Negative (Negative); PH 5.5 (5.0-9.0); Specific Gravity - Urine <= 1.005 (1.005-1.025); Urine Blood Negative (Negative); Urine Ketones Negative (Negative); Urine Protein Negative (Neg-Trace)
[2022-03-31 00:44] LABS: Amphetamine Screen Urine Not Detected (Not Detect); Barbiturates, Urine Not Detected (Not Detect); Benzodiazepines Screen Urine POSITIVE (Not Detect); Cannabinoid Screen Urine Not Detected (Not Detect); Cocaine Screen Urine Not Detected (Not Detect); Fentanyl, urine Not Detected (Not Detect); Opiate Screen Urine Not Detected (Not Detect); Phencyclidine Screen Urine Not Detected (Not Detect)
[2022-03-31 02:41] LABS: MANUAL DIFF FLAG NO
[2022-03-31 02:42] LABS: Basophils Percent Auto 0.6 % (0-2); Eosinophils Absolute Auto 0.1 X10*3/uL (0.0-0.4); Eosinophils Percent Auto 1.4 % (0-4); Hematocrit 44.3 % (37.0-47.0); Hemoglobin 14.6 g/dl (12.0-16.0); Imm Gran Abs Auto 0.01 X10*3/uL (0.00-0.03); Imm Gran Pct Auto 0.1 % (0.0-0.4); Lymphocytes Absolute Auto 3.3 X10*3/uL (1.2-4.9); Lymphocytes Percent Auto 46.6 % (20-40); Mean Corpuscular Volume 91.2 fL (80.0-98.0); Mean Platelet Volume 9.5 fL (9.4-12.3); Monocytes Absolute Auto 0.6 X10*3/uL (0.1-1.2); Monocytes Percent Auto 7.9 % (2-11); Neutrophils Absolute Auto 3.1 x10*3/uL (2.0-8.3); Neutrophils Percent Auto 43.4 % (45-73); Platelet Count 292 X10*3/uL (160-400); Red Blood Count 4.86 X10*6/uL (4.20-5.50); Red Cell Distribution Width 12.1 % (11.0-16.0); White Blood Count 7.1 X10*3/uL (4.8-10.8)
[2022-03-31 03:00] LABS: Acetaminophen LAB < 1 mcg/mL (<30); Alanine Aminotransferase 62 U/L (0-31); Albumin Level 3.8 g/dL (3.5-5.0); Alkaline Phosphatase 75 U/L (39-117); Anion Gap 18 (12-20); Aspartate Amino Transferase 44 U/L (5-31); Bilirubin Total 0.2 mg/dL (0.0-1.0); Blood Urea Nitrogen 8 mg/dL (9-16); Calcium 8.8 mg/dL (8.4-10.2); Carbon Dioxide 18 mmol/L (22-29); Chloride 109 mmol/L (96-108); Estimated Glomerular Filt Rate > 60; Ethanol 155 mg/dL; Glucose Random 116 mg/dL (60-115); Magnesium 1.9 mg/dL (1.6-2.6); Potassium 4.3 mmol/L (3.3-5.1); Salicylate < 5.0 mg/dL (15-30); Sodium 141 mmol/L (135-145); Total Protein 7.2 g/dL (6.5-8.0)
== END 2022-03-31 04:21 | disposition home or self-care (01) ==
PROVIDERS: Physician Assistant; Emergency Provider Emergency Medicine
DX: F10.129 Alcohol abuse with intoxication, unspecified (principal); Y90.6 Blood alcohol level of 120-199 mg/100 ml; Z79.899 Other long term (current) drug therapy; Z63.4 Disappearance and death of family member
CPT/HCPCS: 36415; 80053; 80143; 80179; 80307; 81003; 82077; 83735; 85025; 96372; 99284; J2250

== ENCOUNTER 2023-02-25 11:43 | Outpatient (REF) | payer MEDICAID, SELFPAY ==
--- NOTE | ~2023-02-25 | MM_ITS ---
EXAMINATION: MM SCREENING DIGITAL BREAST TOMOSYNTHESIS, BILATERAL CLINICAL INFORMATION: Screening. Asymptomatic. The lifetime risk of breast cancer based on the Tyrer-Cuzick Model is 5.8%. COMPARISON: Mammography: This study is compared with prior exams dating back to 2018. TECHNIQUE: Digital breast tomosynthesis is performed in both the craniocaudal and mediolateral oblique views along with computer-aided detection (CAD). Synthesized 2D images are generated from the tomosynthesis. FINDINGS: There are scattered areas of fibroglandular density (ACR BI-RADS breast composition Category b). There are no significant masses, abnormal calcifications, or other abnormalities. MM/MM tomosynthesis screening BI IMPRESSION: No mammographic evidence of malignancy. ASSESSMENT: BI-RADS BI-RADS 1 - Negative RECOMMENDATION: Routine annual mammography screening. 1 year F/U This examination should not preclude the clinical evaluation of a suspicious palpable abnormality. This patient's information was entered into a reminder system with a target due date for their next mammogram.
== END 2023-02-25 11:44 | disposition home or self-care (01) ==
LOC: HO.MAMMO 11:43
PROVIDERS: PCP Family Medicine; Visit Provider Family Medicine
DX: Z12.31 Encounter for screening mammogram for malignant neoplasm of breast (principal)
CPT/HCPCS: 77063; 77067

== ENCOUNTER → 2023-02-25 12:00 | Outpatient (BNV) | payer MEDICAID, SELFPAY | PROVIDERS: PCP Family Medicine; Visit Provider Radiology Diagnostic Radiology | DX: Z12.31 Encounter for screening mammogram for malignant neoplasm of breast (principal) | CPT/HCPCS: 77063; 77067 ==

== ENCOUNTER 2023-04-24 14:00 | Outpatient (RCR) | payer MEDICAID, SELFPAY | END 2023-05-15 16:00 | disposition home or self-care (01) | LOC: HO.PT 14:00 | PROVIDERS: PCP Family Medicine; Visit Provider Family Medicine | DX: M54.50 Low back pain, unspecified (principal); G89.29 Other chronic pain | CPT/HCPCS: 97110; 97161; 97530 ==

== ENCOUNTER 2023-06-13 03:06 | Emergency (ER) | payer MEDICAID, SELFPAY ==
--- NOTE | ~2023-06-13 | CT_ITS ---
EXAMINATION: CT HEAD WITHOUT CONTRAST CLINICAL INFORMATION: Fall, EtOH COMPARISON: 08/22/2021 TECHNIQUE: Contiguous axial imaging was performed from the skull base to vertex without intravenous administration of contrast. This CT examination was performed using dose optimization techniques as appropriate, variously including the following: *Automated exposure control *Adjustment of mA and/or kV according to patient size (this includes techniques or standardized protocols for targeted exams where dose is matched to indication/reason for exam; i.e. extremities or head) *Use of iterative reconstruction technique DLP: 727 mGy-cm FINDINGS: Suboptimal assessment in some regions due to motion artifact. There is no appreciable acute intracranial hemorrhage. There is a region of asymmetric hypoattenuation in the left occipital lobe which could be artifactual or sequelae of acute infarct. No abnormal mass-effect or midline shift is seen. Chapman to white matter differentiation is otherwise well preserved. No extra-axial fluid collections are identified. The ventricles are normal in size. The osseous structures and soft tissues are normal. Left mastoid air cells appear opacified. Slight mucosal thickening of the right maxillary sinus. CT/CT head/brain wo IV con IMPRESSION: Suboptimal assessment in some regions due to motion artifact. No acute hemorrhage identified. Region of asymmetric hypoattenuation in the left occipital lobe could be artifactual versus sequelae of acute infarct in the proper clinical setting; this could be more definitively assessed with MRI.
[2023-06-13 03:22] VITALS: BP 183/79; PULSE 95; RESP 16; TEMP 36.6; O2SAT 96; BMI 42.9
[2023-06-13 03:29] LABS: MANUAL DIFF FLAG NO
[2023-06-13 03:31] LABS: Basophils Absolute Auto 0.1 X10*3/uL (0.0-0.2); Basophils Percent Auto 0.7 % (0-2); Eosinophils Absolute Auto 0.1 X10*3/uL (0.0-0.4); Eosinophils Percent Auto 0.9 % (0-4); Hematocrit 46.6 % (37.0-47.0); Hemoglobin 15.2 g/dl (12.0-16.0); Imm Gran Abs Auto 0.03 X10*3/uL (0.00-0.03); Imm Gran Pct Auto 0.3 % (0.0-0.4); Lymphocytes Absolute Auto 3.8 X10*3/uL (1.2-4.9); Lymphocytes Percent Auto 38.1 % (20-40); Mean Corpuscular HGB Conc 32.6 g/dl (31.0-35.0); Mean Corpuscular Volume 92.1 fL (80.0-98.0); Mean Platelet Volume 9.6 fL (9.4-12.3); Monocytes Absolute Auto 0.8 X10*3/uL (0.1-1.2); Monocytes Percent Auto 7.8 % (2-11); Neutrophils Absolute Auto 5.2 x10*3/uL (2.0-8.3); Neutrophils Percent Auto 52.2 % (45-73); Platelet Count 314 X10*3/uL (160-400); Red Blood Count 5.06 X10*6/uL (4.20-5.50); Red Cell Distribution Width 12.7 % (11.0-16.0); White Blood Count 9.9 X10*3/uL (4.8-10.8)
--- NOTE | 2023-06-13 03:40 | ED_ITS ---
HPI - Fall General Chief Complaint: Fall Stated Complaint: etoh anxiety Time Seen by Provider: 06/13/23 03:38 Source: patient and EMS Mode of arrival: EMS History of Present Illness HPI Narrative: Patient had few beers prior to arrival must balance and fell witnessed by the nephew hitting her head to the ground no other injuries patient denies any fall or striking the head but patient is intoxicated says that she had only 2 beers no other injuries Related Data Previous Rx's Medication Instructions Recorded amoxicillin 875 mg-potassium 1 tab PO Q12H 10 days #20 tabs 08/22/21 clavulanate 125 mg tablet (Augmentin) Allergies Allergy/AdvReac Type Severity Reaction Status Date / Time morphine AdvReac Intermediate vomiting Verified 05/12/23 15:34 Review of Systems 2 Review of Systems: Yes all other systems are reviewed and are negative [facility] Past Medical History Medical History Pterygium High cholesterol HTN (hypertension), benign Diabetes Surgical History H/O colonoscopy History of section Social History Alcohol intake: current Alcohol intake frequency: 3 or more drinks per day Alcohol type: beer Patient Tobacco Use Status: Never used Tobacco Smoked in Last 30 Days: No Use of substances other than those prescribed or required for medical reasons: No Advance Directives: No Advance Directives Information Provided: Yes Physical Exam 2 Vital Signs: Vital Signs: Last Vital Signs Temp 97.9 F 06/13/23 03:22 Pulse 95 06/13/23 03:22 Resp 16 06/13/23 03:22 BP 183/79 H 06/13/23 03:22 Pulse Ox 96 06/13/23 03:22 O2 Del Method Room Air 06/13/23 03:22 BMI result Body Mass Index 42.9 Appearance: Alert. Oriented X3. No acute distress. Eyes: PERRLA, No Nystagmus HEENT: Pharynx normal. Oral Mucosa moist AT, NC Neck: Normal inspection. Neck supple. CVS: Normal heart rate and rhythm. Pulses normal. Respiratory: No respiratory distress. Equal air entry bilateral, no wheezing/rales/rhonchi Abdomen: Soft and nontender. Bowel sounds are present, no mass palpable, no CVA tenderness Skin: Skin warm and dry. Normal skin color. Normal skin turgor. Extremities: No lower extremity edema. No calf tenderness Neuro: Oriented X 3. No motor deficit. No sensory deficit.No cerebellar signs , cranial nerves II-XII intact Medications Administered Discontinued Medications Generic Name Dose Route Start Last Admin Trade Name Freq PRN Reason Stop Dose Admin Lorazepam 2 mg 06/13/23 04:42 06/13/23 05:09 Lorazepam 1 Mg Tablet PO 06/13/23 04:43 Not Given ONCE ONE Medical Decision Making Medical Decision Making MDM Narrative: Patient intoxicated discharge home with family CT head is negative Lab Data MDM Lab Attestation statement: I reviewed the patient's lab results. 06/13/23 03:21 06/13/23 03:21 Labs: Lab Results 06/13/23 Range/Units 03:21 WBC 9.9 (4.8-10.8) X10*3/uL RBC 5.06 (4.20-5.50) X10*6/uL Hgb 15.2 (12.0-16.0) g/dl Hct 46.6 (37.0-47.0) % MCV 92.1 (80.0-98.0) fL MCH 30.0 (27.0-33.0) pg MCHC 32.6 (31.0-35.0) g/dl RDW 12.7 (11.0-16.0) % Plt Count 314 (160-400) X10*3/uL MPV 9.6 (9.4-12.3) fL Immature Gran % (Auto) 0.3 (0.0-0.4) % Neut % (Auto) 52.2 (45-73) % Lymph % (Auto) 38.1 (20-40) % [place] % (Auto) 7.8 (2-11) % Eos % (Auto) 0.9 (0-4) % Baso % (Auto) 0.7 (0-2) % Lymph # (Auto) 3.8 (1.2-4.9) X10*3/uL [place] # (Auto) 0.8 (0.1-1.2) X10*3/uL Eos # (Auto) 0.1 (0.0-0.4) X10*3/uL Baso # (Auto) 0.1 (0.0-0.2) X10*3/uL Abs Immat Gran (auto) 0.03 (0.00-0.03) X10*3/uL Absolute Neuts (auto) 5.2 (2.0-8.3) x10*3/uL Absolute Nucleated RBC 0.000 (0.0-0.012) X10*3/uL Nucleated RBC % (auto) 0.0 (0.0-0.2) /100WBC Sodium 138 (135-145) mmol/L Potassium 3.7 (3.3-5.1) mmol/L Chloride 107 (96-108) mmol/L Carbon Dioxide 20 L (22-29) mmol/L Anion Gap 15 (12-20) BUN 13 (9-16) mg/dL Creatinine 1.08 (0.5-1.4) mg/dL Estim Creat Clear Calc 70.9 Estimated GFR 52 Random Glucose 179 H (60-115) mg/dL Calcium 9.2 (8.4-10.2) mg/dL Total Bilirubin 0.2 (0.0-1.0) mg/dL AST 34 H (5-31) U/L ALT 48 H (0-31) U/L Alkaline Phosphatase 79 (39-117) U/L Total Protein 7.9 (6.5-8.0) g/dL Albumin 3.9 (3.5-5.0) g/dL Ethyl Alcohol 247 mg/dL Independent Interpretation I performed an independent interpretation of an: CT Scan Radiology Impression Discussion of test interpretation with radiology: I have reviewed the radiologist's reading. Discharge Plan Discharge Clinical Impression: Alcohol intoxication Patient Disposition: Home, Self-Care Instructions: Alcohol Intoxication (ED) Additional Instructions: Stop drinking alcohol Prescriptions: No Action amoxicillin-pot clavulanate [Augmentin] 875-125 mg tablet 1 tab PO Q12H 10 Days Qty: 20 0RF Interventions: ED Discharge Assessment Last Done: 06/13/23 05:07 Discharge Date/Time: 06/13/23 05:08 Print Language: Samoan
[2023-06-13 03:48] LABS: Ethanol 247 mg/dL
[2023-06-13 03:52] LABS: Alanine Aminotransferase 48 U/L (0-31); Albumin Level 3.9 g/dL (3.5-5.0); Alkaline Phosphatase 79 U/L (39-117); Anion Gap 15 (12-20); Aspartate Amino Transferase 34 U/L (5-31); Bilirubin Total 0.2 mg/dL (0.0-1.0); Blood Urea Nitrogen 13 mg/dL (9-16); Calcium 9.2 mg/dL (8.4-10.2); Carbon Dioxide 20 mmol/L (22-29); Chloride 107 mmol/L (96-108); Creatinine Clr Calc Pharmacy 70.9; Estimated Glomerular Filt Rate 52; Glucose Random 179 mg/dL (60-115); Potassium 3.7 mmol/L (3.3-5.1); Sodium 138 mmol/L (135-145); Total Protein 7.9 g/dL (6.5-8.0)
--- NOTE | 2023-06-13 04:41 | PC.NURSE ---
Pt is screaming and yelling I want to leave . Contacted pts Kwadwo anne, via telephone as pt is ready to be discharge and wants to leave. 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 Pt made aware. aware.
--- OUTSIDE RECORDS SUMMARY | 2023-06-13 04:44 | XMS_ITS | Continuity of Care Document ---
Author Name Unknown Organization [facility] ter Address [address] [place] [id number] Care Team Providers Care Test Engineering Technician Name Role Phone Not on Staff, PCP Primary Care Physician Unavail able Encounter [facility] [place] Date(s): 07/27/21 - 07/27/[address] [id number]- Discharge Disposition: A-D/C Home Attending Physician: Dora Boland MD Admitting Physician: Dora Boland MD Referring Physician: Not on Staff, Referring MD Allergies, Adverse Reactions, Alerts Substance Reaction Severity Status NKA Active Vital Signs Most recent to oldest [Reference Range]: 1 2 Oxygen Saturation [94-100 %] 96 % (07/27/21 12:42 PM) 94 % (07/27/21 10:24 AM) Pulse Rate [55-90 bpm] 85 bpm (07/27/21 12:42 PM) 90 bpm (07/27/21 10:24 AM) Blood Pressure [90-138/55-84 mm Hg] 142/ 88mm Hg *H* (07/27/21 12:42 PM) 148/90mm Hg *H* (07/27/21 10:24 AM) Respiratory Rate [16-30 br/min] 20 br/mi n (07/27/21 12:42 PM) 22 br/min (07/27/21 10:24 AM) Temperature [96.8-100.4 DegF] 98 DegF (07/27/21 12:42 PM) 98.2 DegF (07/27/21 10:24 AM) Mode of Delivery (Oxygen) Room air (07/27/21 12:42 PM) Room air (07/27/21 10:24 AM) Blood pressure sites Arm, right (07/27/21 12:42 PM) Arm, right (07/27/21 10:24 AM) Temperature Route Oral (07/27/21 12:42 PM) Oral (07/27/21 10:24 AM)
--- NOTE | 2023-06-13 05:06 | PC.NURSE ---
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 Pt discharged with nephew. Pt ambulatory at discharge. Reports no pain or any further complaints.
== END 2023-06-13 05:08 | disposition home or self-care (01) ==
PROVIDERS: Emergency Provider Internal Medicine
DX: F10.920 Alcohol use, unspecified with intoxication, uncomplicated (principal); Y90.8 Blood alcohol level of 240 mg/100 ml or more; E11.9 Type 2 diabetes mellitus without complications; I10 Essential (primary) hypertension; E78.5 Hyperlipidemia, unspecified; F43.10 Post-traumatic stress disorder, unspecified
CPT/HCPCS: 36415; 70450; 80053; 80307; 85025; 99284

== ENCOUNTER 2023-07-29 10:53 | Outpatient (AMB) | payer MEDICAID, SELFPAY ==
[2023-07-29 11:13] VITALS: BP 164/83; PULSE 87; BMI 37.1
--- NOTE | 2023-07-29 11:13 | A.OFFVIS_ITS ---
Intake Vital Signs 3 07/29/23 11:13 Height 5 ft 4 in Weight 216 lb 0.848 oz BMI 37.1 BP 164/83 H Blood Pressure Location Lt brachial Position Sitting Pulse 87 Intake Visit Reasons: 5 yr Colonoscopy-2017 Dr Marj JULES note Intake Note: Patient presents to in office visit today for colonoscopy screening. CC: Patient states she would not like to have colonoscopy done. Denies having any GI symptoms today. Of note patient crying in office because she lost her a year ago and she states everything reminds her of him. 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 She is referred by Kelly Willson DO of [facility]. PMX Hypertension Morbid obesity Diabetes High cholesterol PTSD Hx of MA - per pt report * SURGICAL HISTORY section Pterygium resection Colonoscopy-2016 * ALLERGIES: NKDA * LABS SUPPLIED BY PCP: 08/2021 unremarkable renal panel,. Laboratory Tests 06/13/23 03:21 WBC 9.9 Hgb 15.2 Hct 46.6 Plt Count 314 Estimated GFR 52 Total Bilirubin 0.2 AST 34 H ALT 48 H Alkaline Phosphata se 79 TODAY'S VISIT Ecuadorean #Maksim She is very hesitant about the procedure, saying she does not like something being put up there. She denies waking up or having any troubles with the last procedure. I try to answer all of her questions but she seems to be of very low educational level. This a very long appointment because of her hesitancy her difficulty expressing herself her fears. I make educate her about the importance prevent thing colon cancer and because she has had polyps in the past is most likely she will continue to grow them and will need colonoscopies every 5 years. She wants to be sure I am asleep I don't want to feel it. This is her big fear. She prefers a female endscopist. She says that she had a prior MA but I can not find a record of this but I will get an EKG just to make sure her cardiac status is stable prior to the procedure. She denies any respiratory problems. There are no prior problems with anesthesia or sedation. There are no known infectious disease problems. [facility] Medical History Pterygium High cholesterol HTN (hypertension), benign Diabetes Surgical History H/O colonoscopy History of section Social History Alcohol intake: current Alcohol intake frequency: 3 or more drinks per day Alcohol type: beer Patient Tobacco Use Status: Never used Tobacco Review of Systems Const Denies fatigue, Denies fever(s), Denies night sweats, Denies poor appetite and Denies weight loss ENT Reports Normal hearing present, Denies dental pain, Denies dysphagia, Denies hearing loss, Denies mouth pain, Denies odynophagia, Denies throat swelling, Denies tongue swelling and Reports other (Dentition adequate) Card Reports no additional complaints Resp Reports no additional complaints GI Denies abdominal pain, Denies melena, Denies bloating, Denies hematochezia, Denies constipation, Denies GI cramping, Denies dysphagia, Denies excessive flatus, Denies early satiety, Denies heartburn, Denies diarrhea, Denies nausea, Denies odynophagia, Denies vomiting and Denies hematemesis Skin/Breast Denies pruritus, Denies lesions, Denies rash and Denies jaundice Neuro Reports Normal hearing present and Denies Abnormal speech present Psych Reports anxiety Endo Denies fatigue Aller/Immun Denies throat swelling and Denies tongue swelling Physical Exam Vital Signs: Last Vital Signs Pulse 87 07/29/23 11:13 BP 164/83 H 07/29/23 11:13 BMI result Body Mass Index 37.1 Const General: cooperative, no acute distress, well developed and poor hygiene Nutritional Appearance: well nourished and obese morbidly obese Orientation/consciousness: oriented to person, oriented to place and oriented to time Limitations: language barrier and other limitations (Very low cognitive/Education level) HEENT Head: Yes normocephalic and Yes atraumatic Teeth and gingiva: edentulous and poor dentition Eyes General: appearance normal, both eyes and all related structures Pupils: Equal, round and reactive pupils present Neck Neck: Yes normal visual inspection and Yes no lymphadenopathy Thyroid: Thyroid normal Resp Effort & Inspection: normal respiratory effort and able to speak in complete sentences Auscultation: clear to auscultation bilaterally Cardio Rate: regular rate Rhythm: regular rhythm Heart sounds: Normal, physiologic split S2 sound present Peripheral pulses: radial pulses present and posterior tibial pulses present GI Inspection: No distended, Yes Abdominal panniculus present and Yes obesity Palpation (GI): Soft to palpation, nontender, no guarding, not rigid and No hepatosplenomegaly present Percussion: Yes normal to percussion Auscultation: normal bowel sounds Rectal Exam - Female: deferred Abdomen image: 2 1. surgical scar Skin Other: Hands are soiled with dirt General skin exam: no rashes or lesions noted, turgor normal, skin not dry, no jaundice, No spider nevi and no striae Rashes: no rashes Nails: normal Neuro General: oriented to person, oriented to place and oriented to time Cranial nerves: Yes Equal, round and reactive pupils present and Yes Normal hearing present Speech: No Abnormal speech present Extrem General: Yes normal to inspection, No clubbing, No cyanosis and No edema Psych Appearance: grossly normal and other (Very poor hygiene with faint smell of urine) Mental Status: mental status grossly normal Speech and movement: Slurred speech present Affect: Anxious affect present Attitude: Guarded attititude/behavior present Thought process: not confabulating and Impoverished thought process present Thought content: Normal thought content present Insight: Poor insight present (Psych) Judgement: Poor judgement present (Psych) Assessment & Plan Assessment & Plan (1) Pre-op examination: Code(s): Z01.818 - Encounter for other preprocedural examination (2) Tubular adenoma of colon: Comment: 2016 scope= 2 polyps repeat in 5 years Code(s): D12.6 - Benign neoplasm of colon, unspecified (3) Morbid obesity: Code(s): E66.01 - Morbid (severe) obesity due to excess calories Plan Ecuadorean #John and Nelida She is very hesitant about the procedure, saying she does not like something being put up there. She denies waking up or having any troubles with the last procedure. I try to answer all of her questions but she seems to be of very low educational level. This a very long appointment because of her hesitancy her difficulty expressing herself her fears. I make educate her about the importance prevent thing colon cancer and because she has had polyps in the past is most likely she will continue to grow them and will need colonoscopies every 5 years. She wants to be sure I am asleep I don't want to feel it. This is her big fear. She prefers a female endscopist. She says that she had a prior MA but I can not find a record of this but I will get an EKG just to make sure her cardiac status is stable prior to the procedure. She denies any respiratory problems. There are no prior problems with anesthesia or sedation. There are no known infectious disease problems. Orders: Orders 2 Colonoscopy - GI Use Only Today ECG 12 lead EKG Today Z01.818 - Encounter for other preprocedural examination Medications: New 2 bisacodyl (Dulcolax (bisacodyl)) 10 mg (2 x 5 mg) PO BEDTIME 2 days 4 tabs 0RF Coding Level of Care Code New Pt Level 3 (68038) Diagnoses Pre-op examination Z01.818 Tubular adenoma of colon D12.6 Morbid obesity E66.01
== END 2023-07-29 12:02 | disposition home or self-care (01) ==
PROVIDERS: Visit Provider Nurse Practitioner
DX: Z01.818 Encounter for other preprocedural examination (principal); Z12.11 Encounter for screening for malignant neoplasm of colon; Z86.010 Personal history of colon polyps; E66.01 Morbid (severe) obesity due to excess calories
CPT/HCPCS: 99202

== ENCOUNTER → 2023-07-29 10:53 | Outpatient (REF) | payer MEDICAID, SELFPAY ==
--- NOTE | 2023-07-29 12:14 | ECG_ITS ---
Test Reason : pre op Blood Pressure : / mmHG Vent. Rate : 078 BPM Atrial Rate : 078 BPM P-R Int : 138 ms QRS Dur : 084 ms QT Int : 378 ms P-R-T Axes : 041 002 017 degrees QTc Int : 430 ms Normal sinus rhythm Minimal voltage criteria for LVH, may be normal variant ( R in aVL ) Borderline ECG When compared with ECG of 21-APR-2018 10:21, No significant change was found Referred By: Lilibeth Cha Electronically Signed By:IRAIS GUNTER MD
== END ==
LOC: HO.CARD 10:53
PROVIDERS: PCP Family Medicine; Visit Provider Nurse Practitioner
DX: Z01.818 Encounter for other preprocedural examination (principal); E66.01 Morbid (severe) obesity due to excess calories; D12.6 Benign neoplasm of colon, unspecified
CPT/HCPCS: 93005; 99212

== ENCOUNTER → 2023-07-29 12:14 | Outpatient (BNV) | payer MEDICAID, SELFPAY | PROVIDERS: PCP Family Medicine; Visit Provider Internal Medicine Cardiovascular Disease | DX: Z01.818 Encounter for other preprocedural examination (principal); D12.6 Benign neoplasm of colon, unspecified | CPT/HCPCS: 93010 ==

== ENCOUNTER 2023-11-09 09:49 | Outpatient (REF) | payer MEDICAID, SELFPAY ==
[2023-11-09 11:50] LABS: Hemoglobin 15.4 g/dl (12.0-16.0); Mean Corpuscular HGB Conc 32.8 g/dl (31.0-35.0); Mean Corpuscular Hemoglobin 30.6 pg (27.0-33.0); Mean Corpuscular Volume 93.4 fL (80.0-98.0); Mean Platelet Volume 10.2 fL (9.4-12.3); Platelet Count 310 X10*3/uL (160-400); Red Blood Count 5.03 X10*6/uL (4.20-5.50); Red Cell Distribution Width 12.9 % (11.0-16.0); White Blood Count 7.3 X10*3/uL (4.8-10.8)
[2023-11-09 12:10] LABS: Estimated Average Glucose 131 mg/dL; Hemoglobin A1c % 6.2 % (<6.0)
[2023-11-09 12:19] LABS: Alanine Aminotransferase 37 U/L (0-31); Alkaline Phosphatase 85 U/L (39-117); Anion Gap 11 (12-20); Aspartate Amino Transferase 29 U/L (5-31); Bilirubin Direct 0.2 mg/dL (0.0-0.5); Bilirubin Total 0.4 mg/dL (0.0-1.0); Blood Urea Nitrogen 12 mg/dL (9-16); Calcium 9.8 mg/dL (8.4-10.2); Carbon Dioxide 27 mmol/L (22-29); Chloride 106 mmol/L (96-108); Cholesterol 163 mg/dL (<200); Estimated Glomerular Filt Rate > 60; Glucose Random 151 mg/dL (60-115); HDL Cholesterol 41 mg/dL (>40); LDL Cholesterol Calculated 89 mg/dL (<100); Potassium 3.9 mmol/L (3.3-5.1); Sodium 140 mmol/L (135-145); Total Protein 7.9 g/dL (6.5-8.0); Triglycerides 167 mg/dL (<150)
[2023-11-09 12:27] LABS: Creatinine Urine 158.83 mg/dL; Microalbum/Creatinine Ratio Ur 9.4 ug/mg cr (<30)
[2023-11-09 12:36] LABS: HBS Num1 132.81 mIU/mL (0-7.99); HBsAGNum1 0.32 S/CO (0.00-0.99); HIV AB/AG Nonreactive (Nonreactive); HIV Num 1 0.05 S/CO (0.00-0.99); Hepatitis B Surface Antigen Negative (Negative); ~HepC Num1 0.12 S/CO (0.00-0.79); ~Hepatitis B Surface Antibody REACTIVE (Nonreactive); ~Hepatitis C Antibody Nonreactive (Nonreactive)
[2023-11-09 12:40] LABS: Free T4 (Free Thyroxine) 0.96 ng/dL (0.71-1.85); Thyroid Stimulating Hormone 1.73 uIU/mL (0.32-4.0); Vitamin D 25-OH Total 19.8 ng/mL (>30)
[2023-11-09 13:21] LABS: CT PCR NOT DETECTED (Not Detect.); NG PCR NOT DETECTED (Not Detect.)
[2023-11-10 10:58] LABS: RPR Rapid Plasma Reagin NON-REACTIVE (NON-REACTIVE)
== END 2023-11-09 09:50 | disposition home or self-care (01) ==
LOC: HO.HHCL 09:49
PROVIDERS: Visit Provider Family Medicine
DX: Z00.00 Encounter for general adult medical examination without abnormal findings (principal); E11.9 Type 2 diabetes mellitus without complications; N93.9 Abnormal uterine and vaginal bleeding, unspecified
CPT/HCPCS: 0353U; 36415; 80048; 80061; 80076; 82043; 82306; 82570; 83036; 84439; 84443; 85027; 86592; 86706; 86803; 87340; 87389

== ENCOUNTER 2023-11-16 13:37 | Outpatient (REF) | payer MEDICAID, SELFPAY ==
--- NOTE | ~2023-11-16 | US_ITS ---
EXAMINATION: US PELVIS CLINICAL INFORMATION: Postmenopausal bleeding. COMPARISON: None available. TECHNIQUE: Ultrasound of the pelvis is performed using only transabdominal transducers along with Doppler. Patient refused the requested transvaginal portion of the study. FINDINGS: UTERUS: The uterus is anteverted and measures 8.5 x 4.8 x 4.7 cm. The double wall endometrium is difficult to see. Thickness is 4 mm. The uterus, not optimally seen, is smooth in contour and has normal myometrial echogenicity. No visible fibroid. ADNEXA: Neither ovary could be seen. No free fluid is seen. US/US pelvic complete IMPRESSION: Limited exam with only transabdominal imaging. No uterine abnormality is seen although the uterus is not optimally visualized. Neither ovary could be seen. Endovaginal ultrasound could be performed for further evaluation if the patient would agree.
== END 2023-11-16 13:38 | disposition home or self-care (01) ==
LOC: HO.US 13:37
PROVIDERS: PCP Family Medicine; Visit Provider Family Medicine
DX: N93.9 Abnormal uterine and vaginal bleeding, unspecified (principal)
CPT/HCPCS: 76856

== ENCOUNTER 2024-02-09 13:09 | Outpatient (AMB) | payer MEDICAID, SELFPAY ==
--- NOTE | 2024-02-09 14:03 | MHC.OFFVIS ---
Vital Signs 02/09/24 14:04 Height 5 ft 4 in Intake Visit Reasons: AUB/referral Intake Note: May bleed for 4 days Building Services Coordinator Required: Yes Building Services Coordinator Language: Table Attendant Name: Jolene [id number] Information Interpreted: non-clinical & clinical Nursing Service Administrator: Nursing Service Administrator Present (Evelina) Allergies morphine Adverse Reaction (Intermediate, Verified 02/09/24 14:08) vomiting Is last menstrual period known: Yes HPI Comments Details: Patient is here today referred by her primary care due to several episodes of postmenopausal bleeding. Ultrasound was completed but very limited. PFSH Medical History Pterygium High cholesterol HTN (hypertension), benign Diabetes Surgical History H/O colonoscopy History of section Social History Alcohol intake: current Alcohol intake frequency: 3 or more drinks per day Alcohol type: beer Patient Tobacco Use Status: Never used Tobacco Female Reproductive History Menstrual Age of menopause: 50 Total pregnancies: 5 Full term: 4 Number of Living Children: 4 Ab spontaneous: 1 Review of Systems Const All systems reviewed & are unremarkable except as noted in HPI and below Endo Reports no additional complaints Physical Exam Const General: cooperative, healthy appearing and no acute distress Orientation/consciousness: patient oriented x3 GI Inspection: Yes normal to inspection and Yes obesity Palpation (GI): Soft to palpation and Other GI palpation findings present (Nontender) Rectal Exam - Female: visual inspection normal External Female Exam: normal appearance of the urethra Speculum Exam - Vagina: normal appearance of the vagina, normal vaginal discharge and vagina atrophic Neuro General: patient oriented x3 Psych Appearance: well kempt Attitude: cooperative Thought process: Normal thought process present Assessment & Plan Assessment & Plan (1) Postmenopausal bleeding: Code(s): N95.0 - Postmenopausal bleeding Plan Discussed: Ultrasound findings and recommended an endometrial biopsy due to several episodes of postmenopausal bleeding. Patient agreed to the procedure but was unable to complete the ob gyn examination due to vaginal pain. She prefers a female provider and accepts referral to [facility] for a consult. All of her questions and concerns were addressed to the best of my ability and shared decision making. She is agreeable to the plan of care. This note is constructed using voice recognition software. While every effort has been made to ensure accuracy, brim edge trimmer errors may have been included. Orders: Referrals MANAGER MAIL Referral N95.0 - Postmenopausal bleeding Coding Level of Care Code New Pt Level 3 (49516) Diagnoses Postmenopausal bleeding N95.0
== END 2024-02-09 16:15 | disposition home or self-care (01) ==
LOC: HO.HWS 13:09
PROVIDERS: PCP Family Medicine; Visit Provider Advanced Practice Midwife
DX: N95.0 Postmenopausal bleeding (principal)
CPT/HCPCS: 99203

== ENCOUNTER → 2024-02-09 13:09 | Outpatient (BNVA) | payer MEDICAID, SELFPAY | PROVIDERS: PCP Family Medicine; Visit Provider Advanced Practice Midwife | DX: N95.0 Postmenopausal bleeding (principal) | CPT/HCPCS: 99212 ==

== ENCOUNTER 2025-02-06 15:32 | Emergency (ER) | payer MEDICAID, SELFPAY ==
[2025-02-06 15:45] VITALS: BP 171/84; PULSE 88; RESP 17; TEMP 36.6; O2SAT 98; BMI 44.7
--- NOTE | 2025-02-06 15:48 | ED.DIZZY ---
HPI - Dizziness General Chief Complaint: Dizziness Stated Complaint: dizziness Time Seen by Provider: 02/06/25 17:18 Source: patient Mode of arrival: ambulatory Limitations: no limitations History of Present Illness ED Provider: HPI Narrative: Patient diabetic history of anxiety PTSD comes in for vertiginous feeling started at 09:00 history of same in the past on arrival patient noticed in no distress talking to the family on the phone ambulates steady gait no headache no nausea no vomiting no fever no chills no chest pain no palpitation Related Data Home Medications ?Medication ?Instructions ?Recorded ?Confirmed lisinopril 10 mg tablet 10 mg PO DAILY 07/29/23 metformin 500 mg tablet 500 mg PO QPM 07/29/23 mirtazapine 15 mg tablet 15 mg PO BEDTIME 07/29/23 trazodone 50 mg tablet 50 mg PO BEDTIME 07/29/23 Previous Rx's ?Medication ?Instructions ?Recorded bisacodyl 5 mg tablet,delayed 10 mg (2 x 5 mg) PO BEDTIME 2 days 07/29/23 release (Dulcolax (bisacodyl)) #4 tabs bisacodyl 5 mg tablet,delayed 20 mg (4 x 5 mg) PO ONCE 1 day #4 12/23/23 release (Dulcolax (bisacodyl)) tabs peg 3350-electrolytes 236 240 ml PO Q10M #4,000 mL 12/23/23 gram-22.74 gram-6.74 gram-5.86 gram solution Allergies Allergy/AdvReac Type Severity Reaction Status Date / Time morphine AdvReac Intermediate vomiting Verified 02/06/25 15:46 Review of Systems Review of Systems: Yes all other systems are reviewed and are negative [facility] Past Medical History Medical History Pterygium High cholesterol HTN (hypertension), benign Diabetes Surgical History H/O colonoscopy History of section Social History Social History Alcohol intake: current Alcohol intake frequency: 3 or more drinks per day Alcohol type: beer Patient Tobacco Use Status: Never used Tobacco Advance Directives: No Advance Directives Information Provided: No Do you have a plan to hurt others: No Plan Physical Exam Vital Signs: Vital Signs: Last Vital Signs Temp 98.3 F 02/06/25 17:37 Pulse 74 02/06/25 18:06 Resp 16 02/06/25 17:37 BP 167/85 H 02/06/25 18:06 Pulse Ox 96 02/06/25 17:37 O2 Del Method Room Air 02/06/25 17:37 BMI result Body Mass Index 44.7 Appearance: Alert. Oriented X3. No acute distress. Obese Eyes: PERRLA, No Nystagmus ENT: Pharynx normal. Oral Mucosa moist Neck: Normal inspection. Neck supple. CVS: Normal heart rate and rhythm. Pulses normal. Respiratory: No respiratory distress. Equal air entry bilateral, no wheezing/rales/rhonchi Abdomen: Soft and nontender. Bowel sounds are present, no mass palpable, no CVA tenderness Skin: Skin warm and dry. Normal skin color. Normal skin turgor. Extremities: No lower extremity edema. No calf tenderness Neuro: Oriented X 3. No motor deficit. No sensory deficit.No cerebellar signs , cranial nerves II-XII intact Course Course Course Narrative: This is an RME performed by Carlos Matthews COTTON TIER: Additional HPI, ROS, PE not included below will be deferred to primary provider. Patient is a 59-year-old female, your, received expect a call from Dr. Celaya, awoke this morning with severe dizziness, history of similar episode 1 year ago states be secondary to vertigo. PCP expressed concern about safety at home due to her degree of dizziness. She is ambulatory with a steady gait. No focal neurological deficits. Plan: Serum labs, ECG, CT head Medications Administered Discontinued Medications Generic Name Dose Route Start Last Admin Trade Name Freq PRN Reason Stop Dose Admin Meclizine HCl 50 mg 02/06/25 17:36 02/06/25 17:58 Meclizine Hcl 25 Mg Tablet PO 02/06/25 17:37 50 mg ONCE ONE Administration Medical Decision Making Medical Decision Making [facility] Narrative: Patient clinically with benign positional vertigo no signs of cerebellar involvement patient has similar episode last year head CT scan done in the past which were negative, vitals are stable patient is ambulatory in his steady gait will prescribe meclizine advised to follow with PCP Differential Diagnosis Differential Diagnoses: The differential diagnosis associated with the presentation includes Benign positional vertigo/CVA/TIA Lab Data [facility] Lab Attestation statement: I reviewed the patient's lab results. 02/06/25 16:22 02/06/25 16:22 Labs: Lab Results 02/06/25 Range/Units 16:22 WBC 8.0 (4.8-10.8) X10*3/uL RBC 4.97 (4.20-5.50) X10*6/uL Hgb 15.1 (12.0-16.0) g/dl Hct 44.7 (37.0-47.0) % MCV 89.9 (80.0-98.0) fL MCH 30.4 (27.0-33.0) pg MCHC 33.8 (31.0-35.0) g/dl RDW 12.9 (11.0-16.0) % Plt Count 303 (160-400) X10*3/uL MPV 9.7 (9.4-12.3) fL Immature Gran % (Auto) 0.2 (0.0-0.4) % Neut % (Auto) 63.8 (45-73) % Lymph % (Auto) 27.4 (20-40) % Stephens % (Auto) 8.0 (2-11) % Eos % (Auto) 0.2 (0-4) % Baso % (Auto) 0.4 (0-2) % Lymph # (Auto) 2.2 (1.2-4.9) X10*3/uL Stephens # (Auto) 0.6 (0.1-1.2) X10*3/uL Eos # (Auto) 0.0 (0.0-0.4) X10*3/uL Baso # (Auto) 0.0 (0.0-0.2) X10*3/uL Abs Immat Gran (auto) 0.02 (0.00-0.03) X10*3/uL Absolute Neuts (auto) 5.1 (2.0-8.3) x10*3/uL Absolute Nucleated RBC 0.000 (0.0-0.012) X10*3/uL Nucleated RBC % (auto) 0.0 (0.0-0.2) /100WBC Sodium 141 (135-145) mmol/L Potassium 4.0 (3.3-5.1) mmol/L Chloride 108 (96-108) mmol/L Carbon Dioxide 25 (22-29) mmol/L Anion Gap 12 (12-20) BUN 13 (9-16) mg/dL Creatinine 0.86 (0.5-1.4) mg/dL Estim Creat Clear Calc 76.5 Estimated GFR > 60 Random Glucose 229 H (60-115) mg/dL Calcium 9.6 (8.4-10.2) mg/dL Total Bilirubin 0.4 (0.0-1.0) mg/dL AST 46 H (5-31) U/L ALT 65 H (0-31) U/L Alkaline Phosphatase 132 H (39-117) U/L Troponin I High Sens 2.7 (<3.5-17.0) ng/L B-Natriuretic Peptide 47 (<100) pg/mL Total Protein 8.1 H (6.5-8.0) g/dL Albumin 4.3 (3.5-5.0) g/dL Independent Interpretation I performed an independent interpretation of an: EKG Interpretation: Normal sinus rhythm heart rate 85 beats per minute normal interval normal axis no acute ST-T changes no acute ischemia Discharge Plan Discharge Clinical Impression: Benign paroxysmal positional vertigo Patient Disposition: Home, Self-Care Instructions: Benign Paroxysmal Positional Vertigo (DC) Additional Instructions: Care and cautions as advised Take meclizine 1 tablet every 8 hours as needed for dizziness Follow with your PCP as needed Prescriptions: No Action bisacodyl [Dulcolax (bisacodyl)] 5 mg tablet,delayed release (DR/EC) 20 mg PO ONCE 1 Days Qty: 4 0RF Rx Instructions: take at noon the day before colonoscopy peg 3350-electrolytes 236-22.74-6.74 -5.86 gram recon soln 240 ml PO Q10M Qty: 4000 0RF Rx Instructions: Refer to prep instructions given/ mailed to you from GI OFFICE. until fecal effluent is clear metformin 500 mg tablet 500 mg PO QPM lisinopril 10 mg tablet 10 mg PO DAILY mirtazapine 15 mg tablet 15 mg PO BEDTIME trazodone 50 mg tablet 50 mg PO BEDTIME bisacodyl [Dulcolax (bisacodyl)] 5 mg tablet,delayed release (DR/EC) 10 mg PO BEDTIME 2 Days Qty: 4 0RF Print Language: Slovenian
--- NOTE | 2025-02-06 15:54 | ECG_ITS ---
Test Reason : dizziness Blood Pressure : */* mmHG Vent. Rate : 85 BPM Atrial Rate : 85 BPM P-R Int : 146 ms QRS Dur : 82 ms QT Int : 370 ms P-R-T Axes : 47 11 21 degrees QTcB Int : 440 ms Normal sinus rhythm Normal ECG When compared with ECG of 29-Jul-2023 12:12, No significant change was found Referred By: Joaquina Matthews Electronically Signed By: [place] [employer]
[2025-02-06 16:33] LABS: Hematocrit 44.7 % (37.0-47.0); Hemoglobin 15.1 g/dl (12.0-16.0); Imm Gran Abs Auto 0.02 X10*3/uL (0.00-0.03); Imm Gran Pct Auto 0.2 % (0.0-0.4); Lymphocytes Absolute Auto 2.2 X10*3/uL (1.2-4.9); MANUAL DIFF FLAG NO; Mean Corpuscular HGB Conc 33.8 g/dl (31.0-35.0); Mean Corpuscular Hemoglobin 30.4 pg (27.0-33.0); Mean Corpuscular Volume 89.9 fL (80.0-98.0); NRBC Abs Auto 0.000 X10*3/uL (0.0-0.012); NRBC Pct Auto 0.0 /100WBC (0.0-0.2); Platelet Count 303 X10*3/uL (160-400); Red Blood Count 4.97 X10*6/uL (4.20-5.50); White Blood Count 8.0 X10*3/uL (4.8-10.8)
[2025-02-06 16:46] LABS: Alanine Aminotransferase 65 U/L (0-31); Albumin Level 4.3 g/dL (3.5-5.0); Alkaline Phosphatase 132 U/L (39-117); Anion Gap 12 (12-20); Aspartate Amino Transferase 46 U/L (5-31); Blood Urea Nitrogen 13 mg/dL (9-16); Calcium 9.6 mg/dL (8.4-10.2); Carbon Dioxide 25 mmol/L (22-29); Chloride 108 mmol/L (96-108); Creatinine Clr Calc Pharmacy 76.5; Estimated Glomerular Filt Rate > 60; Potassium 4.0 mmol/L (3.3-5.1); Sodium 141 mmol/L (135-145); Total Protein 8.1 g/dL (6.5-8.0)
[2025-02-06 16:52] LABS: B Type Natriuretic Peptide 47 pg/mL (<100)
[2025-02-06 16:53] LABS: Troponin-I High Sensitivity 2.7 ng/L (<3.5-17.0)
--- OUTSIDE RECORDS SUMMARY | 2025-02-06 17:22 | XMS_ITS | Encounter Summary ---
Author Organization [employer] Address [address] [place] [address] Care Team Providers Care Communication Spec Name Role Phone JuanKelly wade Primary Care Provider [phone] Reason for Visit * Reason Onset Date Comments NEW PT 09/23/2024 Encounter Details Date Type Department Care Team ([facility] st Contact Info) Description 09/23/2024 Telephone [facility] MEDICINE [address] [place] [address] Kraig Valencia MD [address] [place] [address] NEW PT Social History Tobacco Use Types Packs/Day Years Used Date Smoking Tobacco: Never Passive Smoke Exposure: Never Smokeless Tobacco: Never Alcohol Use Standard Drinks/Week Comments Never 0 (1 standard drink = 0.6 oz pur e alcohol) Depression Answer Date Recorded Patient Health Questionnaire-9 Score 0 02/17/2023 Housing Stability Answer Date Recorded What is your housing situation today? I have diana piedra 05/06/[address] you li ve. Do you have problems with any of the following? None of the above 05/06/2023 Food Insecurity Answer Date Recorded Within the past 12 months, y ou worried that your food would run out before you got money to buy more: Never True 05/06/2023 Within the past 12 months,th e food you bought just didn't last and you didn't have enough money to get more: Never True Transportation Answer Date Recorded In the past 12 months, has l ack of transportation kept you from medical appts, meetings, work or from getting things needed for daily living? No 05/06/2023 Utilities Answer Date Recorded In the past 12 months, has t he electric, gas, oil or water company threatened to shut off services in your home? No 05/06/2023 Depression Answer Date Recorded Patient Health Questionnaire-2 Score 0 02/17/2023 Comments Unknown Sex and Gender Information Value Date Recorded Sex Assigned at Female 05/19/2022 10:14 AM EDT Legal Sex Female 10:14 AM EDT Gender Identity Female 05/19/2022 10:14 AM EDT Sexual Orientation Straight 05/19/2022 10 :14 AM EDT documented as of this encounter Miscellaneous Notes * Telephone Encounter - Vania Arvizu - 09/23/2024 10:44 AM EST Patient added to [facility] New Patient wait list as 09-23-2024 * Telephone Encounter - Joana Menard - 09/23/2024 10:32 AM EST TC from caller requesting NEW PATIENT visit . DX : Pt before Medical Concern: Insurance name : [facility] Location : [place] Demographic information updated documented in this encounter Plan of Treatment Upcoming Encounters Date Type Department Care Team (Late st Contact Info) Description 04/11/2025 3:00 PM EDT Office Visit [facility] OPTOMETRY [address] [place] [address] Barb Martini, OD [address] [place] [address] documented as of this encounter Visit Diagnoses Not on filedocumented in this encounter Additional Health Concerns Assessment Noted Time PHQ-9 Depression Total Score: 0 02/18/20 23 11:31 AM EDT documented as of this encounter Care Teams Communication Spec Relationship Specialty Start Date End Date Kelly Turner DO [address] [place] [address] PCP - General Family Medicine 01/23/25 documented as of this encounter
[2025-02-06 17:37] VITALS: BP 160/65; PULSE 80; RESP 16; TEMP 36.8; O2SAT 96
[2025-02-06 18:05] VITALS: BP 165/89; PULSE 78
[2025-02-06 18:06] VITALS: BP 167/85; PULSE 74
[2025-02-06 18:07] VITALS: BP 168/81; PULSE 82
[2025-02-06 18:36] VITALS: BP 168/81; PULSE 82; RESP 20; TEMP -17.7; TEMP 0; O2SAT 0
== END 2025-02-06 18:38 | disposition home or self-care (01) ==
PROVIDERS: Nurse Practitioner Family; Emergency Provider Internal Medicine; PCP Family Medicine
DX: H81.10 Benign paroxysmal vertigo, unspecified ear (principal); E11.9 Type 2 diabetes mellitus without complications; I10 Essential (primary) hypertension; E78.5 Hyperlipidemia, unspecified; Z79.84 Long term (current) use of oral hypoglycemic drugs; Z79.899 Other long term (current) drug therapy
CPT/HCPCS: 36415; 80053; 83880; 84484; 85025; 93005; 99283; 99284

== ENCOUNTER → 2025-02-06 15:54 | Outpatient (BNV) | payer MEDICAID, SELFPAY | PROVIDERS: Emergency Provider Internal Medicine; PCP Family Medicine; Visit Provider Internal Medicine Cardiovascular Disease | DX: R42 Dizziness and giddiness (principal) | CPT/HCPCS: 93010 ==

== ENCOUNTER 2025-02-16 17:53 | Outpatient (REF) | payer MEDICAID, SELFPAY | END 2025-02-16 17:54 | disposition home or self-care (01) | LOC: HO.HHCLNP 17:53 | DX: B36.9 Superficial mycosis, unspecified (principal); H62.40 Otitis externa in other diseases classified elsewhere, unspecified ear | CPT/HCPCS: 87070; 87102; 87205 ==

== ENCOUNTER 2025-02-17 10:35 | Outpatient (REF) | payer MEDICAID, SELFPAY ==
--- OUTSIDE RECORDS SUMMARY | 2025-02-17 10:44 | XMS_ITS | Encounter Summary ---
Author Organization [employer] Address [address] [facility] [address] [place] [address] Care Team Providers Care Imaging Nurse Name Role Phone TenaKelly ojeda Primary Care Provider [phone] Reason for Visit * Reason Onset Date Comments NEW PT 09/23/2024 Encounter Details Date Type Department Care Team ([facility] st Contact Info) Description 09/23/2024 Telephone [facility] MEDICINE [address] [place] [address] Kraig Valencia MD [address] [place] [address] NEW PT Social History Tobacco Use Types [...] 09/23/2024 10:44 AM EST Patient added to [facility] New Patient wait list as 09-23-2024 * Telephone Encounter - Joana Menard - 09/23/2024 10:32 AM EST TC from caller requesting NEW PATIENT visit . DX : Pt before Medical Concern: Insurance name : [employer] Location : [place] Demographic information updated documented in this encounter Plan of Treatment Upcoming Encounters Date Type Department Care Team (Late st Contact Info) Description 03/03/2025 2:00 PM EDT Office Visit [facility] MEDICINE [address] [place] [address] Nano Napoles, GLENDY [address] [place] [address] 04/11/2025 3:00 PM EDT Office Visit [facility] OPTOMETRY [address] [place], [place] [id number] Barb Martini, OD [address] [place] [address] documented as of this encounter Visit Diagnoses Not on filedocumented in this encounter Additional Health Concerns Assessment Noted Time PHQ-9 Depression Total Score: 0 02/18/20 23 11:31 AM EDT documented as of this encounter Care Teams Imaging Nurse Relationship Specialty Start Date End Date Kelly Turner DO [address] [place] [id number] PCP - General Family Medicine 01/23/25 documented as of this encounter
== END 2025-02-17 10:36 | disposition home or self-care (01) ==
LOC: HO.HHCL 10:35
PROVIDERS: PCP Family Medicine; Visit Provider Family Medicine
DX: B36.9 Superficial mycosis, unspecified (principal); H62.40 Otitis externa in other diseases classified elsewhere, unspecified ear
CPT/HCPCS: 36415; 85652; 86140

== ENCOUNTER 2025-06-12 15:29 | Outpatient (REF) | payer MEDICAID, SELFPAY ==
[2025-06-12 18:35] LABS: Hematocrit 45.3 % (37.0-47.0); Hemoglobin 14.7 g/dl (12.0-16.0); Mean Corpuscular HGB Conc 32.5 g/dl (31.0-35.0); Mean Corpuscular Hemoglobin 29.7 pg (27.0-33.0); Mean Corpuscular Volume 91.5 fL (80.0-98.0); NRBC Abs Auto 0.000 X10*3/uL (0.0-0.012); NRBC Pct Auto 0.0 /100WBC (0.0-0.2); Platelet Count 233 X10*3/uL (160-400); Red Blood Count 4.95 X10*6/uL (4.20-5.50); White Blood Count 10.8 X10*3/uL (4.8-10.8)
[2025-06-12 18:56] LABS: Alanine Aminotransferase 57 U/L (0-31); Albumin Level 4.4 g/dL (3.5-5.0); Alkaline Phosphatase 125 U/L (39-117); Anion Gap 12 (12-20); Aspartate Amino Transferase 41 U/L (5-31); Blood Urea Nitrogen 13 mg/dL (9-16); Calcium 9.9 mg/dL (8.4-10.2); Carbon Dioxide 26 mmol/L (22-29); Chloride 104 mmol/L (96-108); Cholesterol 152 mg/dL (<200); Estimated Glomerular Filt Rate > 60; HDL Cholesterol 35 mg/dL (>40); Potassium 4.3 mmol/L (3.3-5.1); Sodium 138 mmol/L (135-145); Total Protein 8.3 g/dL (6.5-8.0); Triglycerides 213 mg/dL (<150)
[2025-06-12 19:16] LABS: Free T4 (Free Thyroxine) 0.91 ng/dL (0.71-1.85); Microalbum/Creatinine Ratio Ur 73.1 ug/mg cr (<30); Thyroid Stimulating Hormone 1.55 uIU/mL (0.32-4.0)
--- OUTSIDE RECORDS SUMMARY | 2025-06-12 20:05 | XMS_ITS | Encounter Summary ---
Author Organization [employer] Address [address] [facility] [address] [place] [address] Care Team Providers Care Supervisor Of Operations Name Role Phone Kelly Turner DO Primary Care Provider [phone] Reason for Visit * Reason Onset Date Comments Lab Orders 06/12/2025 Encounter Details Date Type Department Care Team ([facility] st Contact Info) Description 06/12/2025 Telephone [facility] MEDICINE [address] [place] [address] Kelly Turner DO [address] [place] [address] Lab Orders Social History Tobacco Use Types Packs/Day Years Used Date Smoking Tobacco: Never Passive Smoke Exposure: Never Smokeless Tobacco: Never Alcohol Use Standard Drinks/Week Comments Never 0 (1 standard drink = 0.6 oz pur e alcohol) Depression Answer Date Recorded Patient Health Questionnaire-9 Score 0 03/03/2025 Patient Health Questionnaire-9 Score 0 03/03/2025 Last PHQ-9: Questionnaire Data Not on file 0 03/03/2025 Housing Stability Answer Date Recorded What is your housing situation today? I have diana piedra 03/03/[address] you li ve. Do you have problems with any of the following? None of the above 03/03/2025 Food Insecurity Answer Date Recorded Within the past 12 months, y ou worried that your food would run out before you got money to buy more: Never True 12/15/2024 Within the past 12 months,th e food you bought just didn't last and you didn't have enough money to get more: Never True Transportation Answer Date Recorded In the past 12 months, has l ack of transportation kept you from medical appts, meetings, work or from getting things needed for daily living? No 03/03/2025 Utilities Answer Date Recorded In the past 12 months, has t he electric, gas, oil or water company threatened to shut off services in your home? No 12/15/2024 Depression Answer Date Recorded Patient Health Questionnaire-2 Score 0 03/03/2025 Internet Access Answer Date Recorded Internet Access Q1 Yes 12/15/2024 Internet Access Q2 Not on file 12/15/2024 Comments No Sex and Gender Information Value Date Recorded Sex Assigned at Female 05/19/2022 10:14 AM EDT Legal Sex Female 10:14 AM EDT Gender Identity Female 05/19/2022 10:14 AM EDT Sexual Orientation Straight 05/19/2022 10 :14 AM EDT documented as of this encounter Miscellaneous Notes * Telephone Encounter - Emy Falk RN - 06/12/2025 11:31 AM EST TC placed to patient [phone] via [email or web address] ([facility] #[id number]) to inform RN has ordered Tspot for patient to complete. Patient verbalized understanding. Patient to f/u PRN. * Telephone Encounter - Erik Wilkerson - 06/12/2025 10:42 AM EST Tc from pt requesting TB test for program. Please contact pt at [phone]. (South African Speaker) documented in this encounter Plan of Treatment Scheduled Orders Name Type Priority Associated Diagnoses Orde r Schedule T-SPOT .TB Lab Routine Encounter for screening for respiratory tuberculosis Expected: 06/12/2025 (Approximate), Expires: 06/12/2026 documented as of this encounter Goals Goal Patient Goal Type Associated Problems Recent Progress Patient-Stated? Author Help patients manage their type 2 diabetes Care Plan Help patients manage their type 2 diabetes Erik Dick Weekly blood pressure task Care Plan Weekly blood pressure task Erik Dick Help patients manage their type 2 diabetes Care Plan Help patients manage their type 2 diabetes Erik Dick Patient has chronic kidney disease Care Plan Patient has chronic kidney disease No Erik Wilkerson Weekly blood pressure task Care Plan Weekly blood pressure task No Erik Wilkerson Patient has chronic kidney disease Care Plan Patient has chronic kidney disease No Erik Wilkerson documented as of this encounter Visit Diagnoses Diagnosis Encounter for screening for respiratory tuberculosis documented in this encounter Additional Health Concerns Active Problems Noted Date Diagnosed Date Help patients manage their type 2 diabetes 06/12 Weekly blood pressure task 06/12/2025 Help patients manage their type 2 diabetes 06/12 Patient has chronic kidney disease 06/12/2025 Weekly blood pressure task 06/12/2025 Patient has chronic kidney disease 06/12/2025 Assessment Noted Time PHQ-9 Depression Total Score: 0 03/03/20 2:03 PM EDT documented as of this encounter Care Teams Supervisor Of Operations Relationship Specialty Start Date End Date Kelly Turner DO [address] [place] [id number] PCP - General Family Medicine 01/23/25 documented as of this encounter
--- OUTSIDE RECORDS SUMMARY | 2025-06-12 20:05 | XMS_ITS | Clinical Summary ---
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 metFORMIN (Glucophage) 500 MG tablet Take 1 tablet (500 mg) by mouth with evening meal. 90 tablet 3 5 Active losartan (Cozaar) 25 MG tablet Take 1 tablet (25 mg) by mouth Once per day. 90 tablet 3 5 01/24/20 26 Active Additional Information Patient not taking.Reason: Side effects (Makes her feel funny when she takes all of her meds), Reported on 04/26/2025 atorvastatin (Lipitor) 20 MG tablet Take 1 tablet (20 mg) by mouth Once per day. 90 tablet 3 5 01/24/20 26 Active FREESTYLE LITE test strip Use to test blood sugar 2 times daily 100 each 5 01/24/20 26 Active Lancets misc Use to test blood sugar 2 times daily 100 each 5 Active Alcohol Swabs 70 % pads Use to test blood sugar 2 times daily 100 each 5 Active Blood Glucose Monitoring Suppl (FreeStyle White Cloud Lite) w/Device kit Use to test blood sugar 2 times daily 1 kit 5 Active mirtazapine (Remeron) 7.5 MG tablet Take 1 tablet (7.5 mg) by mouth at bedtime. 30 tablet 2 5 01/24/20 26 Active Diclofenac Sodium 1 % gel Apply 2 g topically if needed in the morning, at noon, in the evening, and at bedtime (pain). 150 g 2 5 Active baclofen (Lioresal) 10 MG tabletIndicatio ns:Muscle spasm Take 1 tablet (10 mg) by mouth if needed in the morning, at noon, and at bedtime for muscle spasms. 40 tablet 2 5 Active clotrimazole (Lotrimin) 1 % external solutionIndicat ions:Otomycosis Apply 2 drops twice daily into left ear for 14 days. 10 mL 5 Active meclizine (Antivert) 12.5 MG tabletIndicatio ns:Dizziness TAKE 1 TABLET BY MOUTH EVERY 8 HOURS NEEDED FOR DIZZINESS 30 tablet 1 5 Active acetaminophen (Tylenol 8 Hour) 650 MG ER tabletIndicatio ns:Pain TAKE 1 TABLET BY MOUTH EVERY 8 HOURS NEEDED FOR MILD PAIN, DO NOT BREAK, CRUSH, DISSOLVE OR CHEW 40 tablet 2 5 Active ibuprofen 600 MG tablet Take 1 tablet (600 mg) by mouth 3 times daily. 15 tablet 5 Active chlorhexidine (Peridex) 0.12 % solution Swish 15 mL morning and night for 1 minute. Spit, do not swallow. Do not eat or drink for 30 minutes following use. 473 mL 5 Active acetaminophen (Tylenol 8 Hour) 650 MG ER tablet Take 1 tablet (650 mg) by mouth every 8 (eight) hours if needed for mild pain. Do not crush, chew, or split. 30 tablet 5 Active chlorhexidine (Peridex) 0.12 % solution Swish 15 mL morning and night for 1 minute. Spit, do not swallow. Do not eat or drink for 30 minutes following use. 473 mL 5 Active Active Problems Problem Noted Date Diagnosed Date Pain, dental 04/26/2025 Periodontal disease 03/27/2025 Intellectual disability 11/09/2023 Healthcare maintenance 11/09/2023 Assessment & Plan (11/09/2023 9:58 AM EDT): -s/p flu vaccine MAY 2020 -she declines COVID vaccine -s/p Tdap JAN 2021 -she declines PCV20 -encouraged shingrix vaccine -Hep A immune -she declines Hep B #3 -pap smear nml/HPV negative May 2019 -mammo BIRADS 17 FEB 2023 -colonoscopy with diverticulosis and tubular adenomas Mar 2017, will contact GI re: colonoscopy appt -STI/HIV screen negative December 2017 Dizziness 08/28/2023 Assessment & Plan (08/28/2023 2:34 PM EST): Patient today requested medication for dizziness to be taken PRN Diverticulosis 11/18/2022 Tubular adenoma 11/18/2022 Anxiety 11/18/2022 Chronic bilateral low back pain 11/18/2022 Assessment & Plan (11/09/2023 9:54 AM EDT): -L-spine XR with minimal levoscoliosis, degenerative disc changes JAN 2022 -cont tylenol/naprosyn prn -cont baclofen to help w/ mm spasm -cont home exercises -advised contact [facility] if sx worsen Hyperlipidemia 09/02/2022 Assessment & Plan (11/09/2023 9:54 AM EDT): LDL improved NOVEMBER 2022 -cont lipitor nightly -check lipids prior to next visit Type 2 diabetes mellitus 09/02/2022 Assessment & Plan (11/09/2023 9:52 AM EDT): A1c at goal -cont dietary changes -cont metformin daily -strongly-encouraged lipitor and lisinopril daily -s/p optho eval JUL 2023 at [facility] for annual f/u -foot exam next visit* Assessment & Plan (08/28/2023 2:33 PM EST): Lab Results Component Value Date HGBA1C 6.5 (A) 06/22/2023 HGBA1C 6.8 (A) 02/17/2023 HGBA1C 6.0 (H) 11/18/2022 - Lab Results Component Value Date MICROALBUR 0.5 08/19/2021 CREATININE 0.79 11/18/2022 - Diabetic eye exam:up to date - Diabetic foot exam:pending - Continue lifestyle modifications - Continue current medications Essential hypertension 12/17/2017 Assessment & Plan (11/09/2023 9:54 AM EDT): BP elevated off meds, asx -d/w pt importance of med compliance for prevention of CVA, DE, CKD -cont lisinopril daily, advised pt take medication upon returning home -Cr/GFR and urine microalbumin nml NOVEMBER 2022, repeat prior to next visit -will have BP monitoring with RN at day program -optho as above Assessment & Plan (08/28/2023 2:33 PM EST): Patient did not took her blood pressure medication today, I advise to take her medication every day without missing any dose I advise low Na diet and f/u with PCP Posttraumatic stress disorder 12/17/2017 Assessment & Plan (11/09/2023 9:55 AM EDT): Mood improved -she denies any SI/HI -she has the number for crisis -strongly-encouraged remeron nightly -she declines referral to therapist BMI 40.0-44.9, adult ([facility]) 07/09/2015 Vitamin D deficiency 07/09/2015 Resolved Problems Problem Noted Date Diagnosed Date Resolved Date Encounter for preventive care 08/28/2023 11/09/2023 Assessment & Plan (08/28/2023 2:33 PM EST): See HPI Current mild episode of merrill r depressive disorder without prior episode 12/02/2022 Assessment & Plan (12/02/2022 3:57 PM EDT): Assessment: Patient with ecreased pleasure or interest in activities she once enjoyed, feeling depressed, difficulty falling asleep, sadness, tearfulness and restlessness in the context of extended grief from loss in 2021. Patient will benefit from referral to for housing support and from [facility] services for individual therapy. At this time Seda Obrien meets criteria for Visit Diagnoses: Problem List Items Addressed This Visit Other Current mild episode of major depressive disorder without prior episode ([facility]) Grief Patient ready to address current needs Partially agreeable. Only open to referral to [facility] with [facility]. Strengths include Support from family and medical provider. PLAN: 1. Follow up with [facility]: Not recommended for follow-up 2. Patient goal is move from current housing to decrease emotional reactivity from living in the space where . a. Also interested in OP services with [facility] in [facility] 3. Behavioral Recommendations a. Referral to OP services for individual therapy Grief 12/02/2022 02/17/2023 Encounters Date Type Department Care Team Description 06/12/2025 Telephone [facility] MEDICINE [address] [facility] [facility] [facility] [place] [address] Kelly Turner DO Lab Orders 05/09/2025 Outside Procedure [facility] OPTOMETRY [address] [place] [address] Barb Martini, OD Presbyopia (Primary Dx) 05/05/2025 9:45 AM EDT Office Visit [facility] OPTOMETRY [address] [place] [address] Barb Martini, OD Astigmatism of both eyes with presbyopia (Primary Dx) 04/26/2025 1:30 PM EDT Office Visit [facility] ADULT DENTAL [address] [facility] [place] [address] Paul Muñoz DDS Periodontal disease (Primary Dx); Pain, dental 04/11/2025 3:00 PM EDT Office Visit [facility] OPTOMETRY [address] [place] [address] Barb Martini, OD Type 2 diabetes mellitus without ophthalmic manifestations (CMS/HCC) (Primary Dx); Hypertensive retinopathy of both eyes; Dry eyes; Early cataracts, bilateral; Presbyopia 04/11/2025 Travel 03/27/2025 11:00 AM EDT Office Visit [facility] ADULT DENTAL [address] [facility] [place] [address] Paul Muñoz DDS Periodontal disease (Primary Dx) 03/20/2025 Refill [facility] MEDICINE [address] [place] [address] Kelly Turner DO Pain 03/16/2025 Refill [facility] MEDICINE [address] [place] [address] Jurcsak, Kelly, DO Dizziness from Last 3 Months Immunizations Immunization Administration Dates Next Due Hep B, Adolescent or Pediatric 01/24/2010 Hep B, adult 06/07/2020 Influenza injectable quadriv alent IIV4 with preservative 06/06/2016 Influenza injectable quadriv alent preservative free 06/07/2020,07/09/2015 Influenza, IIV3, injectable 05/25/2014, 1 Influenza, Split (incl. laura fied surface antigen) 04/05/2012 Moderna Covid-19 Vaccine 12+ 08/19/2021,10/31/19 21,10/02/2020 TD (adult), 2 Lf tetanus tox oid, preservative free, adsorbed 06/07/2020 Tdap 02/16/2021,01/24/2010 Family History Medical History Relation Name Comments Stroke Mother Relation Name Status Comments Mother Social History Tobacco Use Types Packs/Day Years Used Date Smoking Tobacco: Never Passive Smoke Exposure: Never Smokeless Tobacco: Never Tobacco Cessation:Counseling Given: Not Answered Alcohol Use Standard Drinks/Week Comments Never 0 [...] Orientation Straight 05/19/2022 10 :14 AM EDT Last Filed Vital Signs Vital Sign Reading Time Taken Comments Blood Pressure 136/74 04/26/2025 1:31 PM EDT Pulse 66 04/26/2025 1:31 PM EDT Temperature 36.6 C (97.9 F) 03/03/2025 1:59 PM EDT Respiratory Rate 16 03/03/2025 1:59 PM EDT Oxygen Saturation 98% 03/03/2025 1:59 PM EDT Inhaled Oxygen Concentration - - Weight 104 kg (229 lb 4 oz) 03/03/2025 1:59 PM E DT Height 152.4 cm (5') 03/03/2025 1:59 PM EDT Body Mass Index 44.77 03/03/2025 1:59 PM EDT Plan of Treatment Health Maintenance Due Date Last Done Comments CT Colonography 1965 Dental Oral Exam 1965 Dental Prophylaxis 1965 Dental X-Ray: Bitewings 1965 FIT DNA/Cologuard 1965 FIT 1965 FOBT 1965 Sigmoidoscopy 1965 Diabetes: Foot Exam 12/13/1975 Pneumococcal Vaccine: 50+ Years (1 of 2 - PCV) 1984 RSV Patients and Patients Aged 60 years or older (1 - Risk 50-74 years 1-dose series) 12/13/2015 Zoster Vaccines (1 of 2) 12/13/2015 Hepatitis B Vaccines (2 of 3 - 19+ 3-dose series) 07/05/2020 06/07/2020, 01/24/2010 Cervical Cancer Screening 06/10/2024 HPV/Cotest 06/10/2024 06/10/2019, 06/06/2016 Pap Smear 06/10/2024 Diabetes: Urine Protein Screening 11/08/2024 06/12/2025, 11/09/2023, 11/18/2022, Additional history exists Lipid Panel 11/08/2024 06/12/2025, 10/19, 11/18/2022, Additional history exists Mammogram 02/25/2025 02/25/2023, 01/17, 01/10/2021, Additional history exists COVID-19 Vaccine ( season) 2025 08/19/2021, 10/30/2020, 10/02/2020 Influenza Vaccine (#1) 2025 , 06/07/2020, 06/06/2016, Additional history exists Diabetes: Hemoglobin A1C 04/25/2025 025, 11/09/2023, 11/09/2023, Additional history exists Dental X-Ray: Full Mouth 05/30/2025 05/29/2022 Alcohol/Substance Use Screening 01/23/2026 01/23/2025 Depression Screening 03/03/2026 03/03/2025, 03/03/20 25 Disability Screening 03/03/2026 03/03/2025 SDOH Screening 03/03/2026 03/03/2025 Tobacco Screening 04/26/2026 04/26/2025 Colonoscopy 04/09/2027 04/09/2017 Colorectal Cancer Screening 04/09/2027 Eye Exam 04/11/2027 04/11/2025, 03/21, 04/11/2025, Additional history exists DTaP/Tdap/Td Vaccines (4 - Td or Tdap) 02/16/2031 02/16/2021, 06/07/2020, 06/07/2020, Additional history exists HIV Screening Completed 11/09/2023 Hepatitis C Screening Completed 11/09/2023 HIB Vaccines Aged Out No longer eligi ble based on patient's age to complete this topic HPV Vaccines Aged Out No longer eligi ble based on patient's age to complete this topic Hepatitis A Vaccines Aged Out No long er eligible based on patient's age to complete this topic IPV Vaccines Aged Out No longer eligi ble based on patient's age to complete this topic Meningococcal B Vaccine Aged Out No l onger eligible based on patient's age to complete this topic Meningococcal Vaccine Aged Out No sherlyn sol eligible based on patient's age to complete this topic RSV under 20 months Aged Out No longe r eligible based on patient's age to complete this topic Rotavirus Vaccines Aged Out No longer eligible based on patient's age to complete this topic Goals Goal Patient Goal Type Associated Problems Recent Progress Patient-Stated? Author Help patients manage their type 2 diabetes Care Plan Help patients manage their type 2 diabetes Erik Dick Weekly blood pressure task Care Plan Weekly blood pressure task No Erik Wilkerson Help patients manage their type 2 diabetes Care Plan Help patients manage their type 2 diabetes Erik Dick Patient has chronic kidney disease Care Plan Patient has chronic kidney disease Erik Dick Weekly blood pressure task Care Plan Weekly blood pressure task No Erik Wilkerson Patient has chronic kidney disease Care Plan Patient has chronic kidney disease No Erki Wilkerson Procedures Procedure Name Priority Date/Time Associated Diagnosis Comments ALBUMIN, RANDOM URINE W/CREATININE Routine 06/12/2025 3:36 PM EST Type 2 diabetes mellitus without complication, without long-term current use of insulin (HCC) Essential hypertension Other hyperlipidemia Elevated LFTs PTSD (post-traumatic stress disorder) PMB (postmenopausal bleeding) Chronic bilateral low back pain, unspecified whether sciatica present Healthcare maintenance Pain Dizziness Muscle spasm CBC Routine 06/12/2025 3:36 PM EST Type 2 diabetes mellitus without complication, without long-term current use of insulin (HCC) Essential hypertension Other hyperlipidemia Elevated LFTs PTSD (post-traumatic stress disorder) PMB (postmenopausal bleeding) Chronic bilateral low back pain, unspecified whether sciatica present Healthcare maintenance Pain Dizziness Muscle spasm BASIC METABOLIC PANEL Routine 06/12/2025 3:36 PM EST Type 2 diabetes mellitus without complication, without long-term current use of insulin (HCC) Essential hypertension Other hyperlipidemia Elevated LFTs PTSD (post-traumatic stress disorder) PMB (postmenopausal bleeding) Chronic bilateral low back pain, unspecified whether sciatica present Healthcare maintenance Pain Dizziness Muscle spasm HEPATIC FUNCTION PANEL Routine 3:36 PM EST Type 2 diabetes mellitus without complication, without long-term current use of insulin (HCC) Essential hypertension Other hyperlipidemia Elevated LFTs PTSD (post-traumatic stress disorder) PMB (postmenopausal bleeding) Chronic bilateral low back pain, unspecified whether sciatica present Healthcare maintenance Pain Dizziness Muscle spasm TSH Routine 06/12/2025 3:36 PM EST Type 2 diabetes mellitus without complication, without long-term current use of insulin (HCC) Essential hypertension Other hyperlipidemia Elevated LFTs PTSD (post-traumatic stress disorder) PMB (postmenopausal bleeding) Chronic bilateral low back pain, unspecified whether sciatica present Healthcare maintenance Pain Dizziness Muscle spasm LIPID PANEL, STANDARD Routine 06/12/2025 3:36 PM EST Type 2 diabetes mellitus without complication, without long-term current use of insulin (HCC) Essential hypertension Other hyperlipidemia Elevated LFTs PTSD (post-traumatic stress disorder) PMB (postmenopausal bleeding) Chronic bilateral low back pain, unspecified whether sciatica present Healthcare maintenance Pain Dizziness Muscle spasm VITAMIN D,25-OH,TOTAL,IA Routine 06/12/2025 3:36 PM EST Type 2 diabetes mellitus without complication, without long-term current use of insulin (HCC) Essential hypertension Other hyperlipidemia Elevated LFTs PTSD (post-traumatic stress disorder) PMB (postmenopausal bleeding) Chronic bilateral low back pain, unspecified whether sciatica present Healthcare maintenance Pain Dizziness Muscle spasm T4, FREE Routine 06/12/2025 3:36 PM EST Type 2 diabetes mellitus without complication, without long-term current use of insulin (HCC) Essential hypertension Other hyperlipidemia Elevated LFTs PTSD (post-traumatic stress disorder) PMB (postmenopausal bleeding) Chronic bilateral low back pain, unspecified whether sciatica present Healthcare maintenance Pain Dizziness Muscle spasm CASE PRESENTATION, DETAILED AND EXTENSIVE TREATMENT PLANNING Routine 04/26/2025 1:30 PM EDT 19 EXTRACTION, ERUPTED TOOTH OR EXPOSED ROOT (ELEVATION/FORCEPS REMOVAL) Routine 04/26/2025 1:30 PM EDT COLOR FUNDUS PHOTOGRAPHY - OU - BOTH EYES Routine 04/11/2025 3:00 PM EDT Hypertensive retinopathy of both eyes INTRAORAL - PERIAPICAL FIRST RADIOGRAPHIC IMAGE Routine 03/27/2025 11:00 AM EDT CASE PRESENTATION, DETAILED AND EXTENSIVE TREATMENT PLANNING Routine 03/27/2025 11:00 AM EDT 19 LIMITED ORAL EVALUATION - PROBLEM FOCUSED Routine 03/27/2025 11:00 AM EDT POCT GLYCATED HEMOGLOBIN, TOTAL Routine 01/23/2025 11:34 AM EDT Type 2 diabetes mellitus without complication, without long-term current use of insulin (CMS/HCC) HEPATITIS C AB W/REFL TO HCV RNA, QN, PCR Routine 11/09/2023 9:51 AM EDT Healthcare maintenance HIV 1/2 ANTIGEN/ANTIBODY, FOURTH GENERATION W/RFL Routine 11/09/2023 9:51 AM EDT Healthcare maintenance BI MAMMOGRAM SCREENING TOMOSYNTHESIS BILATERAL Routine 02/25/2023 12:20 PM EDT ZZZ HISTORICAL HPV E6/E7 RFLX UMM 16 18/45 Routine 06/10/2019 10:46 AM EST HM COLONOSCOPY Routine 04/09/2017 8:37 AM EDT from Last 3 Months or Most Recently Relevant to Health Maintenance Results * (ABNORMAL) Vitamin D, 25-Hydroxy, Total, Immunoassay (06/12/2025 3:36 PM EST) Vitamin D 25-OH Total 22.2(L) >30 ng/mL [facility] Comment: Health Based Reference Values*< 20 ng/mL Ewlwbnskj57-32 ng/mL Insufficient> 30 ng/mL Sufficient*Katina GOLDEN. N Engl J Med. 2007;357:266-280There is no well-established upper level of normal vitamin Dlevels. Some laboratories use 50 ng/mL as an upper limit ofnormal. However, toxicity is patient-dependent and may occurat any level. Careful correlation with the patient'spresentation is necessary and, if there is concern forvitamin D toxicity, treatment should be consideredirrespective of the serum level.Care must be taken in interpreting Vitamin D results fromdifferent laboratories and methodologies. Published datademonstrated that results from patients undergoinghemodialysis may show a negative bias when tested withvarious automated 25-OH vitamin D assays when compared toLC-MS/MS.When testing samples from patients whose predominant form ofVitamin D is Vitamin D2, such as patients receiving VitaminD2 supplementation, results that are subtherapeutic shouldbe confirmed with another method such as LC-MS/MS. Blood Venous blood specimen / Unknown 06/12/2025 3:36 PM EST 06/12/2025 6:21 PM EST Kelly Turner LAB BLOOD ORDERABLES Final R esult Performing Organization Address [facility] de Phone Number [facility] [address] [place] [phone] * (ABNORMAL) Albumin, Random Urine W/Creatinine (06/12/2025 3:36 PM EST) Creatinine, Urine 128.43 mg/dL [facility] Microalbumin Urine 94.0 mg/L [facility] Microalbum Creatinine Ratio Ur 73.1(H) <30 ug/mg cr [facility] Comment:Albumin/Creatinine R atio Reference Ranges: Normal: < 30 ug/mg creatinine Microalbuminuria: 30 - 300 ug/mg creatinineClinical Albuminuria: > 300 ug/mg creatinine Urine (Urine, Random) 06/12/2025 3:36 PM EST 06/12/2025 6:30 PM EST Kelly Turner LAB URINE ORDERABLES Final R esult Performing Organization Address [facility] de Phone Number [facility] [address] [place] [address] [phone] * CBC (06/12/2025 3:36 PM EST) White Blood Count 10.8 4.8 - 10.8 X10*3/uL [facility] Red Blood Count 4.95 4.20 - 5.50 X10*6/uL [facility] Hemoglobin 14.7 12.0 - 16.0 g/dl [facility] Hematocrit 45.3 37.0 - 47.0 % [facility] Mean Corpuscular Volume 91.5 80.0 - 98.0 fL [facility] Mean Corpuscular Hemoglobin 29.7 27.0 - 33.0 pg [facility] Mean Corpuscular HGB Conc 32.5 31.0 - 35.0 g/dl [facility] Red Cell Distribution Width 12.3 11.0 - 16.0 % [facility] Platelet Count 233 160 - 400 X10*3/uL [facility] Mean Platelet Volume 11.5 9.4 - 12.3 fL [facility] NRBC Pct Auto 0.0 0.0 - 0.2 /100WBC [facility] NRBC Abs Auto 0.000 0.0 - 0.012 X10*3/uL [facility] Blood Venous blood specimen / Unknown 06/12/2025 3:36 PM EST 06/12/2025 6:21 PM EST [facility] BLOOD ORDERABLES Final R esult Performing Organization Address City/[facility] Co de Phone Number [facility] [address] [place] [address] [phone] * TSH (06/12/2025 3:36 PM EST) Thyroid Stimulating Hormone 1.55 0.32 - 4.0 uIU/mL [facility] Comment:TSH 3rd Generation ( LoLo) Blood Venous blood specimen / Unknown 06/12/2025 3:36 PM EST 06/12/2025 6:21 PM EST Kelly Weddingful[employer] LAB BLOOD ORDERABLES Final R esult Performing Organization Address City/[facility]/ZIP Co de Phone Number [facility] [address] [place] [address] [phone] * T4, Free (06/12/2025 3:36 PM EST) Free T4 (Free Thyroxine) 0.91 0.71 - 1.85 ng/dL [facility] Blood Venous blood specimen / Unknown 06/12/2025 3:36 PM EST 06/12/2025 6:21 PM EST Kelly Turner DO LAB BLOOD ORDERABLES Final R esult Performing Organization Address City/[facility]/ZIP Co de Phone Number [facility] [address] [place] [address] [phone] * (ABNORMAL) Hepatic Function Panel (06/12/2025 3:36 PM EST) Bilirubin, Total 0.5 0.0 - 1.0 mg/dL [facility] Bilirubin, Direct 0.2 0.0 - 0.5 mg/dL [facility] Aspartate Amino Transferase 41(H) 5 - 31 U/L [facility] Alanine Aminotransferase 57(H) 0 - 31 U/L [facility] Total Protein 8.3(H) 6.5 - 8.0 g/dL [facility] Albumin Level 4.4 3.5 - 5.0 g/dL [facility] Alkaline Phosphatase 125(H) 39 - 117 U/L [facility] Blood Venous blood specimen / Unknown 06/12/2025 3:36 PM EST 06/12/2025 6:21 PM EST Kelly Turner DO LAB BLOOD ORDERABLES Final R esult Performing Organization Address City/[facility]/ZIP Co de Phone Number [facility] [address] [place] [phone] * (ABNORMAL) Lipid Panel, Standard (06/12/2025 3:36 PM EST) Triglycerides 213(H) <150 mg/dL [facility] Comment:Desirable Triglyceri de: less than 150 mg/dLBorderline High Triglyceride 150-199 mg/dLHigh Triglyceride: 200-499 mg/dLVery High Triglyceride: greater than or equal to 5OO mg/dL Cholesterol 152 <200 mg/dL [facility] Comment:Desirable Cholestero l: less than 200 mg/dLBorderline High Cholesterol: 200-239 mg/dLHigh Cholesterol: greater than 239 mg/dL LDL Cholesterol Calculated 75 <100 mg/dL [facility] Comment:Desirable LDL: less than 100 mg/dLNear Optimal/Above Optimal LDL: 110- 129 mg/dLBorderline High LDL: 130-159 mg/dLHigh LDL: 160-189 mg/dLVery High LDL: greater than or equal to 190 mg/dL HDL Cholesterol 35(L) >40 mg/dL [facility] Comment:Desirable HDL: great er than 40 mg/dL Note: This HDL assay may give artificially low results in patients with liver disease. Blood Venous blood specimen / Unknown 06/12/2025 3:36 PM EST 06/12/2025 6:21 PM EST us Kelly Turner DO LAB BLOOD ORDERABLES Final R esult [facility] [address] [place] [address] [phone] * (ABNORMAL) Basic Metabolic Panel (06/12/2025 3:36 PM EST) Sodium 138 135 - 145 mmol/L [facility] Potassium 4.3 3.3 - 5.1 mmol/L [facility] [facility] Chloride 104 96 - 108 mmol/L [facility] Carbon Dioxide 26 22 - 29 mmol/L [facility] Anion Gap 12 12 - 20 [facility] Urea Nitrogen (BUN) 13 9 - 16 mg/dL [facility] Creatinine, Serum 0.80 0.5 - 1.4 mg/dL [facility] Estimated Glomerular Filt Rate >60 [facility] Comment:Chronic Kidney Disea se: Estimated GFR < 60 mL/min/[id number] Kidney Disease: Estimated GFR < 15 mL/min/1.73m2 Glucose 196(H) 60 - 115 mg/dL [facility] Calcium 9.9 8.4 - 10.2 mg/dL [facility] Blood Venous blood specimen / Unknown 06/12/2025 3:36 PM EST 06/12/2025 6:21 PM EST Kelly Turner DO LAB BLOOD ORDERABLES Final R esult [facility] [address] [place] [address] [phone] * Color Fundus Photography - OU - Both Eyes (04/11/2025 3:00 PM EDT) Narrative Barb Martini, OD - 04/14/2025 1:50 PM EDT Images from the original result were not included. Right Eye Disc findings include normal observations. Macula findings include normal observations. Vessel findings include (2+ tortuosity, worse near the disc, A/V nicking, increased ALR, engorged venules ). Periphery findings include normal observations. Left Eye Disc findings include normal observations. Macula findings include normal observations. Vessel findings include (2+ tortuosity, worse near the disc, A/V nicking, increased ALR, engorged venules ). Periphery findings include normal observations. Notes Assessment and Plan: Hypertensive retinopathy in both eyes. Patient educated on the necessity of taking her blood pressure and cholesterol medication as she is at risk for a vein occlusion. Will let her PCP know of today's findings and see her again in 1 year. Barb Martini OD OPHTH PHOTOGRAPHY Final Resul t * (ABNORMAL) POCT HGB A1C (01/23/2025 11:34 AM EDT) Hemoglobin A1C 7.5(A) 4.0 - 5.7 % QC Media Lot # [id number] Lot# Expiration Date 039 Blood 01/23/2025 11:3 4 AM EDT Kelly Turner DO POINT OF CARE TEST ENTER/SOPHIA T ORDERABLES Final Result * Hepatitis C Antibody with Reflex to HCV, RNA, Quantitative, Real-Time PCR (11/09/2023 9:51 AM EDT) Hepatitis C Antibody Nonreactive Nonreactive [facility] Comment:Antibodies to HCV no t detected; does not exclude early acuteHCV infection. Blood Venous blood specimen / Unknown 11/09/2023 9:51 AM EDT 11/09/2023 11:43 AM EDT Kelly Turner DO LAB BLOOD ORDERABLES Final R esult Performing Organization Address City/[facility]/ZIP Co de Phone Number [facility] [address] [place] [address] [phone] * HIV-1/2 Antigen and Antibodies, Fourth Generation, with Reflexes (11/09/2023 9:51 AM EDT) HIV AB/AG Nonreactive Nonreactive [facility] Comment:HIV-1 p24 Ag and/or HIV-1/HIV-2 Ab not detected.A test result that is nonreactive does not exclude thepossibility of exposure to or infection with HIV-1 and/orHIV-2. Nonreactive results in this assay for individualswith prior exposure to HIV-1 and/or HIV-2 may be due toantigen and antibody levels that are below the limit ofdetection of this assay.The dakick HIV Ag/Ab Combo assay result andsupplemental assay results should be interpreted inconjunction with the patient's clinical presentation,history and other laboratory results. If the results areinconsistent with clinical evidence, additional testing issuggested to confirm the result. Blood Venous blood specimen / Unknown 11/09/2023 9:51 AM EDT 11/09/2023 11:43 AM EDT us Kelly Turner DO LAB BLOOD ORDERABLES Final R esult Performing Organization Address City/[facility]/ZIP Co de Phone Number [facility] [address] [place] [address] [phone] * BI Mammogram Screening Tomosynthesis Bilateral (02/25/2023 12:20 PM EDT) Anatomical Region Laterality Modality Breast Bilateral Mammography 02/25/2023 12:2 0 PM EDT Narrative 03/24/2023 11:26 AM EDT [facility] [address] [place] [address] Mammography Report Signed Patient: Seda Obrien MR#: [id number] 139 : 1965 Acct:[id number] Age/Sex: 57 / F ADM Date: 02/25/23 Loc: HO.MAMMO Attending Dr: Kelly Turner DO Ordering Physician: Kelly Turner DO Results: 1N egative Date of Service: 02/25/23 Follow Up: 1 Year From Orig inal Mammogram Procedure(s): MM tomosynthesis screening BI Accession Number(s): [id number] cc: Kelly Turner DO EXAMINATION: MM SCREENING DIGITAL BREAST TOMOSYNTHESIS, BILATERAL CLINICAL INFORMATION: Screening. Asymptomatic. The lifetime risk of breast cancer based on the Tyrer-Cuzick Model is 5.8%. COMPARISON: Mammography: This study is compared with prior exams dating back to 2018. TECHNIQUE: Digital breast tomosynthesis is performed in both the craniocaudal and mediolateral oblique views along with computer-aided detection (CAD). Synthesized 2D images are generated from the tomosynthesis. FINDINGS: There are scattered areas of fibroglandular density (ACR BI-RADS breast composition Category b). There are no significant masses, abnormal calcifications, or other abnormalities. MM/MM tomosynthesis screening BI IMPRESSION: No mammographic evidence of malignancy. ASSESSMENT: BI-RADS BI-RADS 1 - Negative RECOMMENDATION: Routine annual mammography screening. 1 year F/U This examination should not preclude the clinical evaluation of a suspicious palpable abnormality. This patient's information was entered into a reminder system with a target due date for their next mammogram. Dictated By: Jacqueline Guevara MD Signed By: <Electronically signed by Jacqueline Guevara MD in OV> 03/24/23 1123 DD/ 1220 TD/TT: Greenskeeper: Procedure Note Donotuseinterpreter, Image - 03/24/2023 [place] [facility] [address] [place], [place] [address] Mammography Report Signed Patient: Margarita Obrien#: [id number] 139 : 1965Acct:[id number] Age/Sex: 57 / FADM Date: 02/25/23 Loc: HO.MAMMO Attending Dr: Kelly Turner DO Ordering Physician: Kelly Turnerults: 1N egative Date of Service: 02/25/23Follow Up: 1 Year From Orig inal Mammogram Procedure(s): MM tomosynthesis screening BI Accession Number(s): [id number] cc: Kelly Turner DO EXAMINATION: MM SCREENING DIGITAL BREAST TOMOSYNTHESIS, BILATERAL CLINICAL INFORMATION: Screening. Asymptomatic. The lifetime risk of breast cancer based on the Tyrer-Cuzick Model is 5.8%. COMPARISON: Mammography: This study is compared with prior exams dating back to 2018. TECHNIQUE: Digital breast tomosynthesis is performed in both the craniocaudal and mediolateral oblique views along with computer-aided detection (CAD). Synthesized 2D images are generated from the tomosynthesis. FINDINGS: There are scattered areas of fibroglandular density (ACR BI-RADS breast composition Category b). There are no significant masses, abnormal calcifications, or other abnormalities. MM/MM tomosynthesis screening BI IMPRESSION: No mammographic evidence of malignancy. ASSESSMENT: BI-RADS BI-RADS 1 - Negative RECOMMENDATION: Routine annual mammography screening. 1 year F/U This examination should not preclude the clinical evaluation of a suspicious palpable abnormality. This patient's information was entered into a reminder system with a target due date for their next mammogram. Dictated By: Jacqueline Guevara MD Signed By: <Electronically signed by Jacqueline Guevara MD in OV> 03/24/23 1123 DD/ 1220 TD/TT: Greenskeeper: Kelly Turner DO IMG BI PROCEDURES Final Resu lt * HPV E6/E7 RFLX UMM 16 18/45 (06/10/2019 10:46 AM EST) ADDITIONAL TESTING Not indicated () [facility] Comment: Test Performed by [facility] [employer] [place], [address] [place], [place] Rangel Dover M.D., Ph.D., Director of Laboratories , CLIA [id number] HPV 16 RNA Test not performed [facility] HPV 18/45 RNA Test not performed [facility] HPV mRNA E6/E7 Not Detected NOT DETECTED [facility] Comment: This test was performed using the APTIMA(R) HPV Assay ([employer] This assay detects E6/E7 viral messenger RNA (mRNA) from 14 high-risk HPV types (16,18,31,33,35,39,45,51, 52,56,58,59,66,68). For additional information please refer to: http://education.Sunfun Info/faq/FOL778x0 (This link is being provided for informational/ educational purposes only.) The analytical performance characteristics of this assay have been determined by [employer] [place], [place]. The modifications have not been cleared or approved by the FDA. This assay has been validated pursuant to the CLIA regulations and is used for clinical purposes. Please note: Effective 03/31/2016, HPV testing will be performed using [employer]'s APTIMA test which targets mRNA. Detecting mRNA instead of DNA, as in older methods, offers significant improvements in specificity. 06/10/2019 10:4 6 AM EST us Kelly Turner DO HISTORICAL/NON ORDERABLE LAB S Final Result [facility] [address] [place] [address], * Hm Colonoscopy (04/09/2017 8:37 AM EDT) us Historical Provider MD HEALTH MAINTENANCE Final Result from Last 3 Months or Most Recently Relevant to Health Maintenance Additional Health Concerns Active Problems Noted Date Diagnosed Date Help patients manage their type 2 diabetes 06/12 Weekly blood pressure task 06/12/2025 Help patients manage their type 2 diabetes 06/12 Patient has chronic kidney disease 06/12/2025 Weekly blood pressure task 06/12/2025 Patient has chronic kidney disease 06/12/2025 Insurance [facility] C3 DENTAL-[facility] MEDICAID STAND ADULT Care Teams V Belt Coverer Relationship Specialty Start Date End Date Kelly Turner DO [address] [place], [place] [phone] PCP - General Family Medicine 01/23/25
--- OUTSIDE RECORDS SUMMARY | 2025-06-12 20:05 | XMS_ITS | Encounter Summary ---
Author Organization [employer] Address [address] [place] [address] Care Team Providers Care Golf Ball Marker Name Role Phone YueKelly Primary Care Provider [phone] Reason for Visit * Reason Onset Date Comments NEW PT 09/23/2024 Encounter Details Date Type Department Care Team ([facility] st Contact Info) Description 09/23/2024 Telephone [facility] MEDICINE [address] [place], [place] [phone] Kraig Valencia MD [address] [place] [address] NEW PT Social History Tobacco Use Types [...] 09/23/2024 10:44 AM EST Patient added to [facility] New Patient wait list as 09-23-2024 * Telephone Encounter - Joana Menard - 09/23/2024 10:32 AM EST TC from caller requesting NEW PATIENT visit . DX : Pt before Medical Concern: Insurance name : [facility] Location : [place] Demographic information updated documented in this encounter Plan of Treatment Not on file documented as of this encounter Visit Diagnoses Not on filedocumented in this encounter Additional Health Concerns Assessment Noted Time PHQ-9 Depression Total Score: 0 02/18/20 23 11:31 AM EDT documented as of this encounter Care Teams Golf Ball Marker Relationship Specialty Start Date End Date Kelly Turner DO [address] [place] [address] PCP - General Family Medicine 01/23/25 documented as of this encounter
--- OUTSIDE RECORDS SUMMARY | 2025-06-12 20:05 | XMS_ITS | Encounter Summary ---
Author Organization [employer] Address [address] [place] [address] [address] [place] [address] Care Team Providers Care Feeder Catcher Name Role Phone Kelly Turner DO Primary Care Provider + [phone] Kelly Turner DO Primary Care Provider + [phone] Encounter Details Date Type Department Care Team (Late st Contact Info) Description 08/11/2022 Orders Only [facility] PEDS [address] [place], [place] [phone] Kelly Baker LPN Social History Tobacco Use Types Packs/Day Years Used Date Smoking Tobacco: Never Alcohol Use Standard Drinks/Week Comments Never 0 (1 standard drink = 0.6 oz pur e alcohol) Comments Unknown Sex and Gender Information Value Date Recorded Sex Assigned at Female 05/19/2022 10:14 AM EDT Legal Sex Female 10:14 AM EDT Gender Identity Female 05/19/2022 10:14 AM EDT Sexual Orientation Straight 05/19/2022 10 :14 AM EDT documented as of this encounter Plan of Treatment Not on file documented as of this encounter Visit Diagnoses Not on filedocumented in this encounter Additional Health Concerns Assessment Noted Time PHQ-9 Depression Total Score: 9 07/02/20 22 11:39 AM EST documented as of this encounter Care Teams Feeder Catcher Relationship Specialty Start Date End Date Kelly Turner DO [address] [place] [address] PCP - General Family Medicine 02/03/14 07/27/24 Kelly Turner DO [address] [place] [address] PCP - General Family Medicine 01/23/25 documented as of this encounter
--- OUTSIDE RECORDS SUMMARY | 2025-06-12 20:05 | XMS_ITS | Encounter Summary ---
Author Organization [employer] Address [address] [place] [address] Care Team Providers Care Machine Heel Seat Fitter Name Role Phone Kelly Turner DO Primary Care Provider + [phone] Kelly Turner DO Primary Care Provider + [phone] Encounter Details Date Type Department Care Team (Late st Contact Info) Description 10/30/2023 Orders Only [facility] MEDICINE [address] [place], [place] [phone] ProviderValente MD Social History Tobacco Use Types Packs/Day Years Used Date Smoking Tobacco: Never Passive Smoke Exposure: Never Smokeless Tobacco: Never Alcohol Use Standard Drinks/Week Comments Never 0 (1 standard drink = 0.6 oz pur e alcohol) Depression Answer Date Recorded Patient Health Questionnaire-9 Score 0 02/17/2023 Housing Stability Answer Date Recorded What is your housing situation today? I have dianadaysi piedra 05/06/[address] you [...] on file documented as of this encounter Procedures Procedure Name Priority Date/Time Associated Diagnosis Comments HM COLONOSCOPY Routine 04/09/2017 8:37 AM EDT documented in this encounter Results * Hm Colonoscopy (04/09/2017 8:37 AM EDT) us Historical Provider HEALTH MAINTENANCE Final Result documented in this encounter Visit Diagnoses Not on filedocumented in this encounter Additional Health Concerns Assessment Noted Time PHQ-9 Depression Total Score: 0 02/18/20 23 11:31 AM EDT documented as of this encounter Care Teams Machine Heel Seat Fitter Relationship Specialty Start Date End Date Kelly Turner DO [address] [place] [address] PCP - General Family Medicine 02/03/14 07/27/24 Kelly Turner DO [address] [place] [address] PCP - General Family Medicine 01/23/25 documented as of this encounter
[2025-06-13 04:42] LABS: HIV Num 1 0.07 S/CO (0.00-0.99); ~HepC Num1 0.13 S/CO (0.00-0.79); ~Hepatitis C Antibody Nonreactive (Nonreactive)
[2025-06-15 02:13] LABS: TS Negative Control Passed; TS Panel A 0; TS Panel B 0; TS Positive Control Passed; TSpotTB Negative (Negative)
== END 2025-06-12 15:30 | disposition home or self-care (01) ==
LOC: HO.HHCL 15:29
PROVIDERS: PCP Family Medicine; Visit Provider Family Medicine
DX: Z00.00 Encounter for general adult medical examination without abnormal findings (principal); E11.9 Type 2 diabetes mellitus without complications; I10 Essential (primary) hypertension; E78.49 Other hyperlipidemia; R79.89 Other specified abnormal findings of blood chemistry; F43.10 Post-traumatic stress disorder, unspecified; N95.0 Postmenopausal bleeding; G89.29 Other chronic pain; M54.50 Low back pain, unspecified; R42 Dizziness and giddiness; M62.838 Other muscle spasm; Z11.1 Encounter for screening for respiratory tuberculosis; Z11.4 Encounter for screening for human immunodeficiency virus [HIV]; Z11.59 Encounter for screening for other viral diseases; Z11.3 Encounter for screening for infections with a predominantly sexual mode of transmission
CPT/HCPCS: 36415; 80048; 80061; 80076; 82043; 82306; 82570; 83036; 84439; 84443; 85027; 86481; 86592; 86803; 87389